=== PATIENT | female | born 1940 | race Caucasian/White ===

== ENCOUNTER 2016-12-06 00:51 | Inpatient (IN) | payer MEDICARE ==
[~2016-12-06] VITALS: Ht 165.1 cm; Wt 67.3 kg
[2016-12-06] VITALS (8 sets, daily range): BP systolic 113–167; BP diastolic 54–90; PULSE 71–87; RESP 16–27; TEMP 97.6–98.6; O2SAT 95–100
[~2016-12-06 00:51] MED LIST: ACET325 PO; ALBU8I INH; BISA10SU8 PR; BROV15NE INH; BUDE.25I NEB; CLON.1 PO; CLON.2 PO; CLOP75TA PO; DOCU1CAP39 PO; EPIN1INJ20; FENT12DI T-DERMAL; FENT50DI TD; FERR324T4 PO; FURO20 PO; GABA100C4 PO; ISOS30 PO; LEVE250 PO; LEXA5TAB PO; LORA.5 PO; LORTA5 PO; MAGN30S PO; MIRA33502 PO; OXYB5TAB PO; PRAV40 PO; PRIL20CA PO; PROC1TAB8 PO; SENN8.6T19 PO; VITA100T15 PO; [UNRECOGNIZED DRUG - CODE] PO
--- NOTE | 2016-12-06 01:40 | PD ---
HPI Chief Complaint: Altered Mental Status Time Seen by Provider: 01:01 Travel History International Travel<30 days: No Contact w/Intl Traveler<30days: No Traveled to known affect area: No History of Present Illness HPI The patient is a 76 year old female who presents to the [facility] emergency department with a history of being found on the floor at her local alf prior to arrival. The patient was noted to have altered mentation. The patient was on the floor for an unspecified period of time. 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 The patient is noted to have an area of ecchymosis around the right eye that no one is sure how this occurred or when it occurred. The patient seems to have right upper extremity pain on her exam. She does have some contracture of the right upper extremity related to her prior stroke. The patient on arrival is also noted to have what appears to be an abrasion to the right temporal area. She denies having any neck pain. She denies having any chest pain or shortness of breath. The patient is noted to be cool to the touch on arrival. The patient is noted to be wet on arrival which is reportedly related to urinary incontinence. Otherwise, it is difficult to obtain a history from this patient. The patient's electronic medical record was reviewed for further history. In addition, the patient is reportedly followed by hospice. The hospice nurse is coming out to assist with care. 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 Arthritis: Yes Anxiety: No Depression: Yes Heart Rhythm Problems: Yes Cancer: No Cardiac Catheterization: Yes (ON LEFT LEG/ CURRENT WOUND TREATMENT) Cardiovascular Problems: No High Cholesterol: Yes COPD: Yes Cerebrovascular Accident: Yes (RT SIDE CVA-expressive dysphasia) Coronary Artery Disease: Yes Diabetes: No Diminished Hearing: No Deep Vein Thrombosis: Yes (right arm and leg- pvd) Endocrine: No Gastrointestinal Disorders: No Genitourinary: No Headaches: No Hepatitis: No Hiatal Hernia: No Hypertension: Yes Immune Disorder: No Musculoskeletal: No Neurologic: Yes (STROKE, APHASIA, RIGHT SIDE PARALYSIS) Psychiatric: No Reproductive: No Respiratory: Yes (COPD) Immunizations Current: Yes Seizures: Yes Thyroid Disease: No Tetanus Vaccination: Unknown Influenza Vaccination: Yes ?: Not Menopausal: Yes Past Surgical History Narrative Surgical The patient's past surgical history is significant for an appendectomy, cholecystectomy, cataract surgery, hysterectomy, right femoral graft placement. Abdominal Surgery: Yes (APPY) AICD: No Appendectomy: Yes Cholecystectomy: Yes Eye Surgery: No Gynecologic Surgery: Yes (HYSTERECTOMY) Hysterectomy: Yes Joint Replacement: Yes (RIGHT KNEE) Oral Surgery: Yes (T & A) Pacemaker: No Other Surgery: Yes (RIGHT FEMORAL ARTERIGORAM WITH GRAFT PLACEMENT. 01/23/12) Social History Alcohol Use: No Tobacco Use: No (QUIT 20 YEARS AGO) Substance Use: No Allergies-Medications (Allergen,Severity, Reaction): Coded Allergies: No Known Allergies (Verified , 12/06/16) Reported Meds & Prescriptions Reported Meds & Active Scripts Active Narrative Medication The patient is on Plavix according to her medication record. Review of Systems ROS Limitations: Poor Historian Except as stated in HPI: all other systems reviewed are Neg General / Constitutional: No: Fever Eyes: No: Visual changes HENT: Positive: Headaches, No: Neck Pain Cardiovascular: No: Chest Pain or Discomfort Respiratory: No: Shortness of Breath Gastrointestinal: No: Abdominal Pain Musculoskeletal: Positive: Myalgias, Arthralgias, Pain (right arm) Skin: No Rash Neurologic: Positive: Focal Abnormalities, Headache, Change in Mentation, Slurred Speech, No: Weakness, Sensory Disturbance Psychiatric: No: Depression Endocrine: No: Polydipsia Hematologic/Lymphatic: No: Easy Bruising Physical Exam Narrative General: The patient is a well-developed well-nourished female, cool to the touch on arrival, confused on exam although with further questioning the patient does attempt to answer questions and does appear to have aphasia. The patient is able to answer yes or no by shaking her head yes and now it seems to be appropriate with answers in this fashion.. Head and Neck exam: Head is normocephalic, evidence of trauma with an area of ecchymosis around the right eye with periorbital edema, no significant tenderness on palpation. This bruising does appear to be older. The patient has an abrasion along the right latter day. The patient has no facial crepitus or step-off. No increased facial bone mobility on palpation. Eyes: EOMI, pupils are equal round and reactive to light. Nose: Midline septum with pink mucous membranes Mouth: Dentition unremarkable. Moist mucus membranes. Posterior oropharynx is not erythematous. No tonsillar hypertrophy. Uvula midline. Airway patent. Neck: No palpable lymphadenopathy. No nuchal rigidity. No thyromegaly. Cardiovascular: Regular rate and rhythm without murmurs, gallops, or rubs. Lungs: Clear to auscultation bilaterally. No wheezes, rhonchi, or rales. Abdomen: Soft, without tenderness to palpation in all 4 quadrants of the abdomen. No guarding, rebound, or rigidity. Normal bowel sounds are audible. No tenderness on palpation of McBurney's point. Extremities: No clubbing, cyanosis, or edema. 2+ pulses in all 4 extremities. The patient has contracture of the right upper extremity related to her prior history of right-sided hemiparesis from a prior stroke. The patient has areas of ecchymosis in various stages of healing on the right arm. The patient has right arm tenderness on palpation with decreased range of motion. There is no crepitus palpated. Back: No spinous process tenderness to palpation. No costovertebral angle tenderness to palpation. Neurologic Exam: The patient is moderately a phasic on examination with shaking her head yes and no to answer questions. The patient is attempting to move all extremities and appears to be at her baseline neurologically on examination of her strength with a right-sided upper and lower extremity hemiparesis. Data Data Last Documented VS Vital Signs Date Time Temp Pulse Resp B/P Pulse Ox O2 Delivery O2 Flow Rate FiO2 12/06/16 03:00 81 17 148/81 97 Room Air 12/06/16 00:[address] Brain W/O Iv Contrast(Rout) (12/06/16 01:16) Ct Cerv Spine W/O Contrast (12/06/16 01:16) Forearm (2vws) (12/06/16 01:16) Humerus (Min 2vws) (12/06/16 01:16) Wrist, Complete (Bnc5pmf) (12/06/16 01:16) Electrocardiogram (12/06/16 01:19) Complete Blood Count With Diff (12/06/16 01:19) Comprehensive Metabolic Panel (12/06/16 01:19) Creatine Kinase (Cpk) (12/06/16 01:19) Ckmb (Isoenzyme) Profile (12/06/16:19) Troponin I (12/06/16:19) B-Type Natriuretic Peptide (12/06/16:19) Prothrombin Time / Inr (Pt) (12/06/16:19) Act Partial Throm Time (Ptt) (12/06/16:19) Lipase (12/06/16:19) Urinalysis - C+S If Indicated (12/06/16:19) Magnesium (Mg) (12/06/16:19) Ammonia (12/06/16:19) Thyroid Stimulating Hormone (12/06/16:19) Chest, Single Ap (12/06/16:19) Pelvis, Ap Only (Routine) (12/06/16:19) Iv Access Insert/Monitor (12/06/16 01:19) Ecg Monitoring (12/06/16:19) Oximetry (12/06/16:19) Urinary Catheter Insert/Apply (12/06/16 01:19) Lactic Acid Sepsis Protocol (12/06/16 01:19) CKMB (12/06/16 01:30) CKMB% (12/06/16 01:30) Admit Order (Ed Use Only) (12/06/16 03:21) Splint Or Brace Apply/Monitor (12/06/16 03:21) Labs Laboratory Tests Test 12/06/16 12/06/16 01:15 01:30 Urine Color LIGHT-YELLOW Urine Turbidity CLEAR Urine pH 8.0 Urine Specific [place] 1.009 Urine Protein 100 mg/dL Urine Glucose (UA) NEG mg/dL Urine Ketones TRACE mg/dL Urine Occult Blood NEG Urine Nitrite NEG Urine Bilirubin NEG Urine Urobilinogen LESS THAN 2.0 MG/DL Urine Leukocyte Esterase NEG Urine RBC 1 /hpf Urine WBC 1 /hpf Urine Bacteria RARE /hpf Urine Mucus FEW /lpf Microscopic Urinalysis Comment CULT NOT INDICATED White Blood Count 10.5 TH/MM3 Red Blood Count 5.25 MIL/MM3 Hemoglobin 15.7 GM/DL Hematocrit 47.2 % Mean Corpuscular Volume 89.9 FL Mean Corpuscular Hemoglobin 29.9 PG Mean Corpuscular Hemoglobin 33.3 % Concent Red Cell Distribution Width 13.5 % Platelet Count 210 TH/MM3 Mean Platelet Volume 8.8 FL Neutrophils (%) (Auto) 80.9 % Lymphocytes (%) (Auto) 12.7 % Monocytes (%) (Auto) 5.7 % Eosinophils (%) (Auto) 0.5 % Basophils (%) (Auto) 0.2 % Neutrophils # (Auto) 8.5 TH/MM3 Lymphocytes # (Auto) 1.3 TH/MM3 Monocytes # (Auto) 0.6 TH/MM3 Eosinophils # (Auto) 0.1 TH/MM3 Basophils # (Auto) 0.0 TH/MM3 CBC Comment DIFF FINAL Differential Comment Prothrombin Time 11.7 SEC Prothromb Time International 1.1 RATIO Ratio Activated Partial 23.6 SEC Thromboplast Time Sodium Level 136 MEQ/L Potassium Level 3.8 MEQ/L Chloride Level 102 MEQ/L Carbon Dioxide Level 22.6 MEQ/L Anion Gap 11 MEQ/L Blood Urea Nitrogen 23 MG/DL Creatinine 1.33 MG/DL Estimat Glomerular Filtration 39 ML/MIN Rate Random Glucose 151 MG/DL Lactic Acid Level 3.1 mmol/L Calcium Level 9.2 MG/DL Magnesium Level 2.2 MG/DL Total Bilirubin 0.7 MG/DL Aspartate Amino Transf 30 U/L (AST/SGOT) Alanine Aminotransferase 25 U/L (ALT/SGPT) Alkaline Phosphatase 65 U/L Ammonia 23 MCMOL/L Total Creatine Kinase 120 U/L Creatine Kinase MB 0.8 NG/ML Troponin I LESS THAN 0.02 NG/ML B-Type Natriuretic Peptide 91 PG/ML Total Protein 8.0 GM/DL Albumin 4.1 GM/DL Lipase 99 U/L Thyroid Stimulating Hormone 6.900 uIU/ML [address] [place] [address] Medical Decision Making Medical Screen Exam Complete: Yes Emergency Medical Condition: Yes Medical Record Reviewed: Yes Interpretation(s) Last Impressions Pelvis X-Ray 12/06/16118 Signed Impressions: Service Date/Time: Tuesday, December 06, 2016 02:23 - CONCLUSION: No definite acute abnormality is seen. There is limited visualization of the right femoral neck. Donald Ortiz MD Chest X-Ray 12/06/16118 Signed Impressions: Service Date/Time: Tuesday, December 06, 2016 02:20 - CONCLUSION: Cardiomegaly. Donald Ortiz MD Wrist X-Ray 12/06/16115 Signed Impressions: Service Date/Time: Tuesday, December 06, 2016 02:10 - CONCLUSION: No acute abnormality seen. The bones are osteopenic. Donald Ortiz MD Radius/Ulna X-Ray 12/06/16115 Signed Impressions: Service Date/Time: Tuesday, December 06, 2016 02:13 - CONCLUSION: The radius and ulna are intact. Donald Ortiz MD Humerus X-Ray 12/06/16115 Signed Impressions: Service Date/Time: Tuesday, December 06, 2016 02:17 - CONCLUSION: Fracturing of the proximal and mid right humeral shaft. Donald Ortiz MD Head CT 12/06/16115 Signed Impressions: Service Date/Time: Tuesday, December 06, 2016 02:32 - CONCLUSION: 1. Areas of subarachnoid hemorrhage at the right frontal lobe, subdural hemorrhage of the right parietal lobe, and parenchymal areas of hemorrhage in the left parietal, left temporal and an intraventricular focal hemorrhage in the lateral and third ventricles. These are all acute. 2. Encephalomalacia involving much of the left middle cerebral artery territory from prior infarction. 3. Right periorbital soft tissue swelling and air-fluid level in the right maxillary sinus. An orbital floor fracture cannot be excluded. Donald Ortiz MD Cervical Spine CT 12/06/16115 Signed Impressions: Service Date/Time: Tuesday, December 06, 2016 02:32 - CONCLUSION: 1. No acute bony abnormalities seen. 2. Degenerative change as described above. 3. Tortuous right common carotid artery seen in the prevertebral soft tissues. Donald Ortiz MD Differential Diagnosis Metabolic encephalopathy, versus hepatic encephalopathy, versus intracranial hemorrhage, versus cervical spine injury, versus sepsis encephalopathy, versus urinary tract infection, versus right upper extremities fracture Narrative Course During the course of the patients emergency department visit, the patients history, examination, and differential diagnosis were reviewed with the patient. The patient had IV access obtained and blood work sent for analysis. The patient was placed on a monitoring analyst with oximetry and blood pressure monitoring. The patient had an EKG done on arrival. The patient's EKG shows a sinus rhythm heart rate of 66, wavy baseline is noted, however the patient is slightly tremulous on arrival. No acute ST segment elevation is noted. A chest x-ray, pelvic x-ray was ordered, right wrist, right forearm, right wrist x -ray was ordered. CT scan of the head and neck was ordered. A Menjivar catheter is placed to gravity. The patient's hospice nurse called to check on the patient and is on his way in to assist with the patient's care. The patients laboratory studies were reviewed and remarkable for the patient's CBC is remarkable for a white count of 10.5, hemoglobin 15.7, platelets 210 with 80.9 neutrophils. CMP is remarkable for BUN of 23, creatinine 1.33, glucose 151, CPK and troponin I are within normal limits, TSH is 6.9, lipase 99 , PT 11.7, INR 1.1, PTT 23.6. Urinalysis shows 100 protein, trace ketones rare bacteria. Radiology studies were reviewed and remarkable for a CT scan of the brain that shows areas of subarachnoid hemorrhage at the right frontal lobe, subdural hemorrhage of the right parietal lobe parenchymal areas of hemorrhage in the left parietal, left temporal and intraventricular focal hemorrhage in the lateral and third ventricles. These appear all to be acute. There is encephalomalacia involving much of the left middle cerebral artery territory from prior infarction, right. Orbital soft tissue swelling and air fluid levels in the right maxillary sinus and orbital floor fracture cannot be excluded. CT scan of the C-spine shows no acute abnormality. Chest x-ray shows cardiomegaly, no other acute abnormality. Pelvic x-ray shows no acute abnormality. Right wrist and radial ulna x-ray shows no acute abnormality. Right humerus x-ray reveals fracturing at the proximal and mid right humeral shaft. The CT scan of the brain was called to me emergently by the reading radiologist. By that time the hospice nurse for the patient had arrived at the patient's bedside. He confirmed that the patient is DNR related to multiple comorbid medical issues. He does have access to the patient's power of patent attorney and close family member who is not in this state. He did contact them to discuss the patient's current medical findings. He requested that a neurosurgical consultation be obtained regarding recommendations for this patient's care and they also requested that a medical doctor evaluate the patient for her ability to withstand surgery if this is recommended by the neurosurgeon. They report that they have been told in the past that the patient is not a surgical candidate as she would not tolerate any surgery related to her other comorbid medical issues, however they would like this confirmed. We explained that the patient during this evaluation may continue to decompensate and going to cardiac arrest or respiratory distress requiring intubation. They do not want the patient's DNR revoked. They are aware that the patient may from these injuries prior to her medical clearance if that is able to be obtained. They reported to the hospice nurse that they believe that the patient would not have a good recovery and would probably not survive surgery, however for peace of mind they would like this confirmed. The patient was admitted to the hospital in critical condition and [facility] a consultation to Dr. Brown, neurosurgery. Critical Care Narrative Aggregate critical care time was 47 minutes. Time to perform other separately billable procedures was not included in the critical care time. My time did not include minutes spent treating any other patients simultaneously or on activities that did not directly contribute to the patient's treatment. The services I provided to this patient were to treat and/or prevent clinically significant deterioration that could result in: Respiratory failure, versus brain herniation, versus cardiovascular collapse I provided critical care services requiring my management, as noted below: Chart data review, documentation time, medication orders and management, vital sign assessments/reviewing monitor data, ordering and reviewing lab tests, ordering and interpreting/reviewing x-rays and diagnostic studies, care of the patient and discussion of the patient with the admitting physicians. Physician Communication Physician Communication I spoke to Dr. Brown regarding this patient's case after I saw the CT scan findings. He plans to see the patient and consultation. He did request that the patient be admitted to the intensive care unit. I discussed this patient's case with the patient's hospice nurse. I discussed this patient's case with the hospitalist, Dr. Ovalle who did agree to admit the patient for further evaluation and treatment at this time. Diagnosis Primary Impression: Fall Qualified Code: W19.XXXA - Fall, initial encounter Additional Impressions: Intracranial hemorrhage Platelet inhibition due to Plavix Closed right humeral fracture Qualified Code: S42.301A - Closed fracture of shaft of right humerus, unspecified fracture morphology, initial encounter Hospice care patient Admitting Information Admitting Physician Requests: Admit Mesha Varghese MD Dec 06, 2016 01:40
[2016-12-06 01:49] LABS: BACTERIA, URINE RARE /hpf; BLOOD, URINE NEG (NEG); COMMENT (UR) CULT NOT INDICATED; CULTURE IF INDICATED CULT NOT INDICATED; GLUCOSE,URINE NEG (NEG); KETONE, URINE TRACE mg/dL (NEG); MUCUS URINE FEW /lpf (OCC); NITRITE,URINE NEG (NEG); URINE COLOR LIGHT-YELLOW (YELLW/STRAW)
[2016-12-06 01:52] LABS: APTT (PATIENT) 23.6 SEC (24.3-30.1); INTERNATIONAL NORMALIZED RATIO 1.1 RATIO; PROTHROMBIN TIME - PATIENT 11.7 SEC (9.8-11.6)
[2016-12-06 01:56] LABS: AUTOMATED NEUTROPHIL # 8.5 TH/MM3 (1.8-7.7); BASOPHIL % 0.2 % (0.0-2.0); EOSINOPHIL # 0.1 TH/MM3 (0-0.4); EOSINOPHIL % 0.5 % (0.0-4.0); HEMATOCRIT 47.2 % (35.0-46.0); HEMO FLAGS DIFF FINAL; LYMPH % 12.7 % (9.0-44.0); LYMPHOCYTE # 1.3 TH/MM3 (1.0-4.8); MEAN CELL VOLUME 89.9 FL (80.0-100.0); MEAN CORPUSCULAR HEMOGLOBIN 29.9 PG (27.0-34.0); MEAN CORPUSCULAR HGB CONC 33.3 % (32.0-36.0); MONO % 5.7 % (0.0-8.0); NEUT % 80.9 % (16.0-70.0); PLATELET COUNT 210 TH/MM3 (150-450); RED BLOOD COUNT 5.25 MIL/MM3 (4.00-5.30); RED CELL DISTRIBUTION WIDTH 13.5 % (11.6-17.2); WHITE BLOOD COUNT 10.5 TH/MM3 (4.0-11.0)
[2016-12-06 02:06] LABS: ANION GAP 11 MEQ/L (5-15); AST (GOT) 30 U/L (15-37); BICARBONATE 22.6 MEQ/L (21.0-32.0); BLOOD UREA NITROGEN 23 MG/DL (7-18); CHLORIDE 102 MEQ/L (98-107); GLOMERULAR FILTRATION RATE 39 ML/MIN (>89); MAGNESIUM 2.2 MG/DL (1.5-2.5); POTASSIUM 3.8 MEQ/L (3.5-5.1); SODIUM (NA) 136 MEQ/L (136-145)
[2016-12-06 02:15] LABS: ALKALINE PHOSPHATASE 65 U/L (45-117); ALT (GPT) 25 U/L (10-53); CREATINE KINASE 120 U/L (26-192); TOTAL BILIRUBIN ADULT 0.7 MG/DL (0.2-1.0)
--- NOTE | 2016-12-06 02:28 | RADRPT ---
EXAM DATE/TIME: 12/06/2016 02:23 [facility] COMPARISON: No previous studies available for comparison. INDICATIONS : Pelvic pain post fall. MEDICAL HISTORY : None. SURGICAL HISTORY : None. ENCOUNTER: Initial ACUITY: 1 day PAIN SCORE: 2/10 LOCATION: Bilateral pelvis FINDINGS: A single frontal view of the pelvis demonstrates no evidence of fracture. The bony pelvic ring is in tact. The left hip is well demonstrated. The right hip is rotated making full valuation difficult. B carlos mineralization is normal. The soft tissues are intact. Vascular calcifications and stents are pr esent. Clips are seen in the left inguinal region. CONCLUSION: No definite acute abnormality is seen. There is limited visualization of the right femoral neck. Donald Ortiz MD on December 06, 2016 at 2:25 Board Certified Radiologist. This report was verified electronically.
--- NOTE | 2016-12-06 02:29 | RADRPT ---
EXAM DATE/TIME: 12/06/2016 02:20 [facility] COMPARISON: CHEST SINGLE AP, September 16, 2015, 22:26. INDICATIONS : Shortness of breath. MEDICAL HISTORY : None. SURGICAL HISTORY : None. ENCOUNTER: Initial ACUITY: 1 day PAIN SCORE: 0/10 LOCATION: Bilateral chest FINDINGS: A single view of the chest demonstrates the lungs to be symmetrically aerated without evidence of mas s, infiltrate or effusion. The heart size is enlarged.. There is a fracture of the right humerus.. CONCLUSION: Cardiomegaly. Donald Ortiz MD on December 06, 2016 at 2:27 Board Certified Radiologist. This report was verified electronically.
--- NOTE | 2016-12-06 02:31 | RADRPT ---
EXAM DATE/TIME: 12/06/2016 02:13 [facility] COMPARISON: No previous studies available for comparison. INDICATIONS : Right forearm pain post fall. MEDICAL HISTORY : None. SURGICAL HISTORY : None. ENCOUNTER: Initial ACUITY: 1 day PAIN SCORE: 6/10 LOCATION: Right upper extremity FINDINGS: Two view examination of the right forearm demonstrates no evidence of fracture or dislocation. Bony mineralization is decreased. The soft tissue structures are intact. There is fracturing of the mid humerus. CONCLUSION: The radius and ulna are intact. Donald Ortiz MD on December 06, 2016 at 2:29 Board Certified Radiologist. This report was verified electronically.
[2016-12-06 02:33] LABS: CKMB 0.8 NG/ML (0.5-3.6)
--- NOTE | 2016-12-06 02:34 | RADRPT ---
EXAM DATE/TIME: 12/06/2016 02:17 [facility] COMPARISON: No previous studies available for comparison. INDICATIONS : Right humerus pain post fall. MEDICAL HISTORY : None. SURGICAL HISTORY : None. ENCOUNTER: Initial ACUITY: 1 day PAIN SCORE: 10/10 LOCATION: Right upper extremity FINDINGS: There is a spiral fracture through the proximal and mid humeral shaft with medial dislocation of the main distal fragment. The glenohumeral and elbow joints are aligned. CONCLUSION: Fracturing of the proximal and mid right humeral shaft. Donald Ortiz MD on December 06, 2016 at 2:32 Board Certified Radiologist. This report was verified electronically.
--- NOTE | 2016-12-06 02:35 | RADRPT ---
EXAM DATE/TIME: 12/06/2016 02:10 [facility] COMPARISON: No previous studies available for comparison. INDICATIONS : Right wrist pain post fall. MEDICAL HISTORY : None. SURGICAL HISTORY : None. ENCOUNTER: Initial ACUITY: 1 day PAIN SCORE: 6/10 LOCATION: Right upper extremity FINDINGS: Three view examination of the right wrist demonstrates no soft tissue swelling, dislocation, or fract ure. The carpal bones are in normal alignment. The joint spaces are maintained. Bony mineralizatio n is decreased. CONCLUSION: No acute abnormality seen. The bones are osteopenic. Donald Ortiz MD on December 06, 2016 at 2:33 Board Certified Radiologist. This report was verified electronically.
--- NOTE | 2016-12-06 02:51 | RADRPT ---
EXAM DATE/TIME: 12/06/2016 02:32 [facility] COMPARISON: No previous studies available for comparison. INDICATIONS : Found on floor. Altered mental status. RADIATION DOSE: 32.81 CTDIvol (mGy) MEDICAL HISTORY : Cerebrovascular disease. Hypertension. Seizures.COPD SURGICAL HISTORY : Appendectomy. Cholecystectomy.Hysterectomy. ENCOUNTER: Initial ACUITY: 1 day PAIN SCALE: 0/10 LOCATION: cranial TECHNIQUE: Multiple contiguous axial images were obtained of the head. Using automated exposure control and adj ustment of the mA and/or kV according to patient size, radiation dose was kept as low as reasonably a chievable to obtain optimal diagnostic quality images. FINDINGS: CEREBRUM: There is encephalomalacia involving much of the left middle cerebral artery territory including porti ons of the left frontal, parietal, and temporal lobes. There are acute areas of focal parenchymal hem orrhage seen in the left anterior parietal lobe measuring 1.1 cm and at the posterior left temporal l obe measuring 1.6 cm. There is subarachnoid hemorrhage seen at the right frontal lobe. There is a sub dural hemorrhage seen at the right parietal lobe measuring up to 6 mm in thickness. There is acute he morrhage seen in the lateral ventricles and in the upper third ventricle. Midline shift is not seen. The ventricles are dilated. The basal cisterns are open. No evidence of midline shift, mass lesion, o r acute infarction. POSTERIOR FOSSA: The cerebellum and brainstem are intact. The 4th ventricle is midline. The cerebellopontine angle i s unremarkable. EXTRACRANIAL: The visualized portion of the orbits is intact. There is right periorbital soft tissue swelling. Ther e is fluid in the right maxillary sinus. An orbital floor injury on the right cannot be excluded. SKULL: The calvaria is intact. No evidence of skull fracture. CONCLUSION: 1. Areas of subarachnoid hemorrhage at the right frontal lobe, subdural hemorrhage of the right parie latrice lobe, and parenchymal areas of hemorrhage in the left parietal, left temporal and an intraventric ular focal hemorrhage in the lateral and third ventricles. These are all acute. 2. Encephalomalacia involving much of the left middle cerebral artery territory from prior infarction . 3. Right periorbital soft tissue swelling and air-fluid level in the right maxillary sinus. An orbita l floor fracture cannot be excluded. Donald Ortiz MD on December 06, 2016 at 2:36 Board Certified Radiologist. This report was verified electronically.
--- NOTE | 2016-12-06 03:10 | RADRPT ---
EXAM DATE/TIME: 12/06/2016 02:32 [place] COMPARISON: No previous studies available for comparison. INDICATIONS : Found on floor. Altered mental status. RADIATION DOSE: 20.82 CTDIvol (mGy) MEDICAL HISTORY : Cerebrovascular disease. Hypertension. Seizures.COPD SURGICAL HISTORY : Appendectomy. Cholecystectomy.Hysterectomy. ENCOUNTER: Initial ACUITY: 1 day PAIN SCALE: 0/10 LOCATION: neck TECHNIQUE: Volumetric scanning of the cervical spine was performed. Multiplanar reconstructions in the sagittal, coronal and oblique axial planes were performed. Using automated exposure control and adjustment o f the mA and/or kV according to patient size, radiation dose was kept as low as reasonably achievable to obtain optimal diagnostic quality images. FINDINGS: VERTEBRAE: Normal vertebral body height. There is a calcified right common carotid artery seen and the preverteb ral soft tissues. This is secondary to tortuous atherosclerotic change. ALIGNMENT: There is mild anterior subluxation of C3 on C4 and posterior subluxation of C5 on C6 and minimal ante rior subluxation of C7 on T1. C2-C3: The bony spinal canal is normal in size. No evidence of disc bulge or herniation. The neural forami na are bilaterally patent. There is facet hypertrophy being worse on the right. C3-C4: The bony spinal canal is normal in size. No evidence of disc bulge or herniation. The neural forami na are bilaterally patent. There is facet hypertrophy being worse on the left. C4-C5: The bony spinal canal is normal in size. No evidence of disc bulge or herniation. The neural forami na are bilaterally patent. There is facet hypertrophy. C5-C6: The disc demonstrates decreased height. There is disc bulge and prominent posterior osteophytic ridgi ng causing a moderate impression on the thecal sac especially on the right side. There is uncovertebr al and facet hypertrophy being worse on the right. There is right neural foraminal narrowing. The lef t neural foramina is patent. C6-C7: The disc space is narrowed. There is mild diffuse disc bulge. There is a possible more focal left lat eral recess protrusion. There is uncovertebral and mild facet hypertrophy. There is left neural latricia inal narrowing. The right neural foramina is patent. C7-T1: The bony spinal canal is normal in size. No evidence of disc bulge or herniation. The neural forami na are bilaterally patent. There is right facet hypertrophy. CONCLUSION: 1. No acute bony abnormalities seen. 2. Degenerative change as described above. 3. Tortuous right common carotid artery seen in the prevertebral soft tissues. Donald Ortiz MD on December 06, 2016 at 3:03 Board Certified Radiologist. This report was verified electronically.
[2016-12-06 03:37] LABS: LACTIC ACID GHOST NOT REPORTABLE
[2016-12-06] MEDS ORDERED: NALOXONE HCL 0.4 MG/ML AMP IV PRN (03:45)
[2016-12-06] MEDS ORDERED: ENALAPRILAT 2.5 MG/2 ML VIAL IV PUSH PRN (03:45)
[2016-12-06] MEDS ORDERED: SODIUM CHLORIDE 0.9% FLUSH 5 ML FLUSH FLUSH PRN (03:45)
[2016-12-06] MEDS ORDERED: ONDANSETRON HCL 4 MG/2 ML VIAL IVP PRN (03:45)
[2016-12-06 05:33] LABS: AUTOMATED NEUTROPHIL # 9.3 TH/MM3 (1.8-7.7); BASOPHIL # 0.1 TH/MM3 (0-0.2); BASOPHIL % 0.7 % (0.0-2.0); EOSINOPHIL % 0.1 % (0.0-4.0); HEMO FLAGS DIFF FINAL; LYMPH % 5.5 % (9.0-44.0); LYMPHOCYTE # 0.6 TH/MM3 (1.0-4.8); MEAN CELL VOLUME 88.8 FL (80.0-100.0); MEAN CORPUSCULAR HEMOGLOBIN 30.2 PG (27.0-34.0); MONO % 7.2 % (0.0-8.0); NEUT % 86.5 % (16.0-70.0); PLATELET COUNT 206 TH/MM3 (150-450); RED BLOOD COUNT 4.85 MIL/MM3 (4.00-5.30); RED CELL DISTRIBUTION WIDTH 13.6 % (11.6-17.2); WHITE BLOOD COUNT 10.7 TH/MM3 (4.0-11.0)
[2016-12-06 06:01] LABS: BICARBONATE 27.8 MEQ/L (21.0-32.0); POTASSIUM 3.7 MEQ/L (3.5-5.1)
[2016-12-06] MEDS: SODIUM CHLORIDE 0.9% FLUSH 5 ML FLUSH FLUSH SCH ×2 (08:20→21:00)
--- NOTE | 2016-12-06 08:53 | PD.CONS ---
(Alden Brown MD) HPI Consult Requested By Primary Care Physician Patricia Causey MD (Alden Brown MD) Service NRS Consult Requested By ED Physician Reason for Consult ICH, s/p fall History of Present Illness Ms. Hutchinson is a 76-year-old female with history of large right hemispheric stroke and baseline aphasia. She was reported to be in Hospice care and fell. She was brought to [facility] ED. Work up showed a right humerus fracture and intracranial hemorrhage. She is awake, only says her name, she does not follow commands. A neurosurgical evaluation was requested. (Kristi Wright) Review of Systems ROS Limitations: Clinical Condition, Speech Impaired (Kristi Wright) Past Family Social History Allergies: Coded Allergies: No Known Allergies (Verified , 12/06/16) Past Medical History Previous large right side CVA with chronic aphasia Hypertension COPD CAD Hx of DVT Seizures Past Surgical History Cataract Hysterectomy Cholecystectomy Appendectomy Reported Medications Plavix 75 mg daily Active Ordered Medications Current Medications Medications (Trade) Dose Ordered Sig/Sandra Route PRN Reason Start Time Stop Time Status Last Admin Dose Admin IV Flush (NS Flush) 2 ml UNSCH PRN FLUSH FLUSH AFTER USING IV ACCESS 12/06/16 03:45 IV Flush (NS Flush) 2 ml BID FLUSH 12/06/16 09:00 12/06/16 08:20 Ondansetron HCl (Zofran Inj) 4 mg Q6H PRN IVP NAUSEA OR VOMITING 12/06/16 03:45 Naloxone HCl (Narcan Inj) 0.4 mg UNSCH PRN IV SEE LABEL COMMENTS 12/06/16 03:45 Enalaprilat (Vasotec Inj) 1.25 mg Q6H PRN IV PUSH SBP>160, DBP>90 12/06/16 12:00 Pantoprazole Sodium (Protonix) 40 mg DAILY PO 12/07/16 09:00 Family History noncontributory Social History from nursing report, resides in retirement in hospice care no reports of current tobacco, etoh use, or illicit drug use (Kristi Wright ) Physical Exam Vital Signs Vital Signs Date Time Temp Pulse Resp B/P Pulse Ox O2 Delivery O2 Flow Rate FiO2 12/06/16 06:30 98.1 87 20 116/54 95 12/06/16 03:00 81 17 148/81 97 Room Air 12/06/16 01:00 72 16 139/66 98 Room Air 12/06/16 00:51 75 25 96 Room Air 12/06/16 00:51 98.4 71 25 167/81 96 12/06/16 00:51 25 97 Room Air Laboratory Laboratory Tests Test 12/06/16 12/06/16 12/06/16 12/06/16 01:15 01:30 05:02 05:22 Urine Color LIGHT-YELLOW Urine Turbidity CLEAR Urine pH 8.0 Urine Specific [place] 1.009 Urine Protein 100 Urine Glucose (UA) NEG Urine Ketones TRACE Urine Occult Blood NEG Urine Nitrite NEG Urine Bilirubin NEG Urine Urobilinogen LESS THAN 2.0 Urine Leukocyte Esterase NEG Urine RBC 1 Urine WBC 1 Urine Bacteria RARE Urine Mucus FEW Microscopic Urinalysis Comment CULT NOT INDICATED White Blood Count 10.5 10.7 Red Blood Count 5.25 4.85 Hemoglobin 15.7 14.6 Hematocrit 47.2 43.0 Mean Corpuscular Volume 89.9 88.8 Mean Corpuscular Hemoglobin 29.9 30.2 Mean Corpuscular Hemoglobin 33.3 34.0 Concent Red Cell Distribution Width 13.5 13.6 Platelet Count 210 206 Mean Platelet Volume 8.8 8.4 Neutrophils (%) (Auto) 80.9 86.5 Lymphocytes (%) (Auto) 12.7 5.5 Monocytes (%) (Auto) 5.7 7.2 Eosinophils (%) (Auto) 0.5 0.1 Basophils (%) (Auto) 0.2 0.7 Neutrophils # (Auto) 8.5 9.3 Lymphocytes # (Auto) 1.3 0.6 Monocytes # (Auto) 0.6 0.8 Eosinophils # (Auto) 0.1 0.0 Basophils # (Auto) 0.0 0.1 CBC Comment DIFF FINAL DIFF FINAL Differential Comment Prothrombin Time 11.7 Prothromb Time International 1.1 Ratio Activated Partial 23.6 Thromboplast Time Sodium Level 136 140 Potassium Level 3.8 3.7 Chloride Level 102 102 Carbon Dioxide Level 22.6 27.8 Anion Gap 11 10 Blood Urea Nitrogen 23 21 Creatinine 1.33 1.27 Estimat Glomerular Filtration 39 41 Rate Random Glucose 151 125 Lactic Acid Level 3.1 1.9 Calcium Level 9.2 8.9 Magnesium Level 2.2 Total Bilirubin 0.7 Aspartate Amino Transf 30 (AST/SGOT) Alanine Aminotransferase 25 (ALT/SGPT) Alkaline Phosphatase 65 Ammonia 23 Total Creatine Kinase 120 Creatine Kinase MB 0.8 Troponin I LESS THAN 0.02 B-Type Natriuretic Peptide 91 Total Protein 8.0 Albumin 4.1 Lipase 99 Thyroid Stimulating Hormone 6.900 3rd Gen (Alden Brown MD) Physical Exam Ms. Hutchinson is awake, only said her first name, otherwise nonverbal. Not following commands. Cranial nerve examination: pupils to be equal, round, and reactive to light. Facial appears symmetrical. Face sensation, hearing, visual waller, and olfaction can not be assessed properly due to the patients condition. Neck is soft and supple. Muscle strength: Right arm in ortho splint and sling. grossly moved left arm and both legs. Cannot assess detail exam due to clinical condition. Deep tendon reflexes are 1+ in the left upper extremities. In the lower extremities, the patellar and Achilles are 1+, bilaterally. There is left Babinski response. Cerebellar examination is limited due to the patient condition, but no obvious deficits are noted. (Kristi Wright) Result Diagram: 12/06/1652112/06/16521 Imaging Last Impressions Pelvis X-Ray 12/06/16118 Signed Impressions: Service Date/Time: Tuesday, December 06, 2016 02:23 - CONCLUSION: No definite acute abnormality is seen. There is limited visualization of the right femoral neck. Donald Ortiz MD Chest X-Ray 12/06/16118 Signed Impressions: Service Date/Time: Tuesday, December 06, 2016 02:20 - CONCLUSION: Cardiomegaly. Donald Ortiz MD Wrist X-Ray 12/06/16115 Signed Impressions: Service Date/Time: Tuesday, December 06, 2016 02:10 - CONCLUSION: No acute abnormality seen. The bones are osteopenic. Donald Ortiz MD Radius/Ulna X-Ray 12/06/16115 Signed Impressions: Service Date/Time: Tuesday, December 06, 2016 02:13 - CONCLUSION: The radius and ulna are intact. Donald Ortiz MD Humerus X-Ray 12/06/16115 Signed Impressions: Service Date/Time: Tuesday, December 06, 2016 02:17 - CONCLUSION: Fracturing of the proximal and mid right humeral shaft. Donald Ortiz MD Head CT 12/06/16115 Signed Impressions: Service Date/Time: Tuesday, December 06, 2016 02:32 - CONCLUSION: 1. Areas of subarachnoid hemorrhage at the right frontal lobe, subdural hemorrhage of the right parietal lobe, and parenchymal areas of hemorrhage in the left parietal, left temporal and an intraventricular focal hemorrhage in the lateral and third ventricles. These are all acute. 2. Encephalomalacia involving much of the left middle cerebral artery territory from prior infarction. 3. Right periorbital soft tissue swelling and air-fluid level in the right maxillary sinus. An orbital floor fracture cannot be excluded. Donald Ortiz MD Cervical Spine CT 12/06/16115 Signed Impressions: Service Date/Time: Tuesday, December 06, 2016 02:32 - CONCLUSION: 1. No acute bony abnormalities seen. 2. Degenerative change as described above. 3. Tortuous right common carotid artery seen in the prevertebral soft tissues. Donald Ortiz MD (Kristi Wright) Alden Brown MD Dec 06, 2016 08:53 Kristi Wright Dec 06, 2016 12:49
[2016-12-06] MEDS ORDERED: ENOXAPARIN SODIUM 40 MG/0.4 ML SYRINGE SQ SCH (09:00)
--- NOTE | 2016-12-06 11:14 | HHI.HP ---
[facility] Patricia Causey MD Admission Diagnosis ICH, Right humerus fx s/p fall Diagnoses: (1) ICH (intracerebral hemorrhage) (2) Closed right humeral fracture (3) History of CVA (cerebrovascular accident) Chief Complaint: Altered mental status change Travel History International Travel<30 Days: No Contact w/Intl Traveler <30 Da: No Traveled to Known Affected Are: No History of Present Illness 76-year-old female with a history of aphasia and right-sided hemiparesis from a prior stroke, a resident of a local correction facility was brought in yesterday to the ED for evaluation of ecchymosis to the right high after patient was found on the ground as she has fallen down. Patient is a very poor historian and able to provide any further history however during my exam she was alert and nodding. Head CT revealed multiple area of intracranial bleed for which neurosurgery has been consulted. Right humerus x-ray revealed Fracturing of the proximal and mid right humeral shaft. Review of Systems ROS Limitations: Poor Historian Other 12 systems reviewed and are negative except for the ones mentioned in the history of present illness Past Family Social History Past Medical History hypertension, depression, COPD, history of cerebrovascular accident with right sided hemiparesis and aphasia, seizure disorder, history of DVT, history of coronary artery disease. 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 - 12/06/16 Family History Due to patient is an current history of aphasia with stroke patient family history not relevant for this case Social History Alcohol Use: No Tobacco Use: No (QUIT 20 YEARS AGO) Substance Use: No Physical Exam Vital Signs Vital Signs Date Time Temp Pulse Resp B/P Pulse Ox O2 Delivery O2 Flow Rate FiO2 12/06/16 07:43 97.6 82 20 113/57 100 12/06/16 07:00 Room Air 12/06/16 06:30 98.1 87 20 116/54 95 12/06/16 03:00 81 17 148/81 97 Room Air 12/06/16 01:00 72 16 139/66 98 Room Air 12/06/16 00:51 75 25 96 Room Air 12/06/16 00:51 98.4 71 25 167/81 96 12/06/16 00:51 25 97 Room Air Physical Exam GENERAL: This is a well-nourished, well-developed patient, in no apparent distress. SKIN: No rashes, ecchymoses or lesions. Cool and dry. HEAD: Atraumatic. Normocephalic. No temporal or scalp tenderness. EYES: Pupils equal round and reactive. Extraocular motions intact. No scleral icterus. No injection or drainage. ENT: Nose without bleeding, purulent drainage or septal hematoma. Throat without erythema, tonsillar hypertrophy or exudate. Uvula midline. Airway patent. NECK: Trachea midline. No JVD or lymphadenopathy. Supple, nontender, no meningeal signs. CARDIOVASCULAR: Regular rate and rhythm without murmurs, gallops, or rubs. RESPIRATORY: Clear to auscultation. Breath sounds equal bilaterally. No wheezes , rales, or rhonchi. GASTROINTESTINAL: Abdomen soft, non-tender, nondistended. No hepato-splenomegaly , or palpable masses. No guarding. MUSCULOSKELETAL: Extremities without clubbing, cyanosis, or edema. No joint tenderness, effusion, or edema noted. No calf tenderness. Negative Homans sign bilaterally. NEUROLOGICAL: Awake and alert. Cranial nerves II through XII intact. Motor and sensory grossly within normal limits. Five out of 5 muscle strength in all muscle groups. Normal speech. Laboratory Laboratory Tests Test 12/06/16 12/06/16 12/06/16 12/06/16 01:15 01:30 05:02 05:22 Urine Color LIGHT-YELLOW Urine Turbidity CLEAR Urine pH 8.0 Urine Specific [place] 1.009 Urine Protein 100 Urine Glucose (UA) NEG Urine Ketones TRACE Urine Occult Blood NEG Urine Nitrite NEG Urine Bilirubin NEG Urine Urobilinogen LESS THAN 2.0 Urine Leukocyte Esterase NEG Urine RBC 1 Urine WBC 1 Urine Bacteria RARE Urine Mucus FEW Microscopic Urinalysis Comment CULT NOT INDICATED White Blood Count 10.5 10.7 Red Blood Count 5.25 4.85 Hemoglobin 15.7 14.6 Hematocrit 47.2 43.0 Mean Corpuscular Volume 89.9 88.8 Mean Corpuscular Hemoglobin 29.9 30.2 Mean Corpuscular Hemoglobin 33.3 34.0 Concent Red Cell Distribution Width 13.5 13.6 Platelet Count 210 206 Mean Platelet Volume 8.8 8.4 Neutrophils (%) (Auto) 80.9 86.5 Lymphocytes (%) (Auto) 12.7 5.5 Monocytes (%) (Auto) 5.7 7.2 Eosinophils (%) (Auto) 0.5 0.1 Basophils (%) (Auto) 0.2 0.7 Neutrophils # (Auto) 8.5 9.3 Lymphocytes # (Auto) 1.3 0.6 Monocytes # (Auto) 0.6 0.8 Eosinophils # (Auto) 0.1 0.0 Basophils # (Auto) 0.0 0.1 CBC Comment DIFF FINAL DIFF FINAL Differential Comment Prothrombin Time 11.7 Prothromb Time International 1.1 Ratio Activated Partial 23.6 Thromboplast Time Sodium Level 136 140 Potassium Level 3.8 3.7 Chloride Level 102 102 Carbon Dioxide Level 22.6 27.8 Anion Gap 11 10 Blood Urea Nitrogen 23 21 Creatinine 1.33 1.27 Estimat Glomerular Filtration 39 41 Rate Random Glucose 151 125 Lactic Acid Level 3.1 1.9 Calcium Level 9.2 8.9 Magnesium Level 2.2 Total Bilirubin 0.7 Aspartate Amino Transf 30 (AST/SGOT) Alanine Aminotransferase 25 (ALT/SGPT) Alkaline Phosphatase 65 Ammonia 23 Total Creatine Kinase 120 Creatine Kinase MB 0.8 Troponin I LESS THAN 0.02 B-Type Natriuretic Peptide 91 Total Protein 8.0 Albumin 4.1 Lipase 99 Thyroid Stimulating Hormone 6.900 3rd Gen Result Diagram: 12/06/1652112/06/16521 Imaging Last Impressions Pelvis X-Ray 12/06/16118 Signed Impressions: Service Date/Time: Tuesday, December 06, 2016 02:23 - CONCLUSION: No definite acute abnormality is seen. There is limited visualization of the right femoral neck. Donald Ortiz MD Chest X-Ray 12/06/16118 Signed Impressions: Service Date/Time: Tuesday, December 06, 2016 02:20 - CONCLUSION: Cardiomegaly. Donald Ortiz MD Wrist X-Ray 12/06/16115 Signed Impressions: Service Date/Time: Tuesday, December 06, 2016 02:10 - CONCLUSION: No acute abnormality seen. The bones are osteopenic. Donald Ortiz MD Radius/Ulna X-Ray 12/06/16115 Signed Impressions: Service Date/Time: Tuesday, December 06, 2016 02:13 - CONCLUSION: The radius and ulna are intact. Donald Ortiz MD Humerus X-Ray 12/06/16115 Signed Impressions: Service Date/Time: Tuesday, December 06, 2016 02:17 - CONCLUSION: Fracturing of the proximal and mid right humeral shaft. Donald Ortiz MD Head CT 12/06/16115 Signed Impressions: Service Date/Time: Tuesday, December 06, 2016 02:32 - CONCLUSION: 1. Areas of subarachnoid hemorrhage at the right frontal lobe, subdural hemorrhage of the right parietal lobe, and parenchymal areas of hemorrhage in the left parietal, left temporal and an intraventricular focal hemorrhage in the lateral and third ventricles. These are all acute. 2. Encephalomalacia involving much of the left middle cerebral artery territory from prior infarction. 3. Right periorbital soft tissue swelling and air-fluid level in the right maxillary sinus. An orbital floor fracture cannot be excluded. Donald Ortiz MD Cervical Spine CT 12/06/16115 Signed Impressions: Service Date/Time: Tuesday, December 06, 2016 02:32 - CONCLUSION: 1. No acute bony abnormalities seen. 2. Degenerative change as described above. 3. Tortuous right common carotid artery seen in the prevertebral soft tissues. Donald Ortiz MD Assessment and Plan Problem List: (1) ICH (intracerebral hemorrhage) ICD Code: I61.9 Status: Acute (2) Closed right humeral fracture ICD Code: S42.301A Status: Acute Assessment and Plan 76-year-old female with Intracerebral hemorrhage: Head CT noted and review with finding of Areas of subarachnoid hemorrhage at the right frontal lobe, subdural hemorrhage of the right parietal lobe, and parenchymal areas of hemorrhage in the left parietal, left temporal and an intraventricular focal hemorrhage in the lateral and third ventricles. Neurosurgery has been consulted however recommend conservative treatment. Will repeat head CT in 24 hours. PT/OT/speech therapy consultation pending Fracture of the proximal and mid right humeral shaft: Status post mechanical fall, Humerus x-ray noted and reviewed by me. Consult orthopedic surgery Prior history of CVA with aphasia, CAD: Chronic; resume Plavix when okay with neurosurgery DVT prophylaxis: Bilateral SCDs Code Status DO NOT RESUSCITATE Physician Certification 2 Midnight Certification Type: Admission for Inpatient Services Order for Inpatient Services The services are ordered in accordance with Medicare regulations or non- Medicare payer requirements, as applicable. In the case of services not specified as inpatient-only, they are appropriately provided as inpatient services in accordance with the 2-midnight benchmark. Estimated LOS (days): 2 days is the estimated time the patient will need to remain in the hospital, assuming treatment plan goals are met and no additional complications. Post-Hospital Plan: Not yet determined Problem Qualifiers (1) Closed right humeral fracture: Qualified Code: S42.301A - Closed fracture of shaft of right humerus, unspecified fracture morphology, initial encounter Reggie Rodriguez MD Dec 06, 2016 11:14
[2016-12-06] MEDS ORDERED: RESP: ALBUTEROL 2.5 MG/IPRATROPIUM 0.5 MG NEB (PRN) NEB (12:00)
--- NOTE | 2016-12-06 22:03 | EKG ---
Date Performed: 12/06/2016 Time Performed: 01:08:24 PTAGE: 76 years EKG: Sinus rhythm NONSPECIFIC ST & T-WAVE ABNORMALITY ABNORMAL RHYTHM ECG PREVIOUS TRACING : 01/30/2015 14.22 Compared to the previous tracing, ST-T changes significant ly improved DOCTOR: Jason Samaniego Interpretating Date/Time 12/06/2016 22:02:40
[2016-12-07] VITALS: BP 137/87; PULSE 82; RESP 18; TEMP 97.6; O2SAT 96
[2016-12-07 04:20] VITALS: BP 138/80; PULSE 88; RESP 20; TEMP 98; O2SAT 95
[2016-12-07] MEDS ORDERED: ACETAMINOPHEN 325 MG TAB PO PRN (05:15)
[2016-12-07] MEDS ORDERED: NORC5TAB PO (06:29)
[2016-12-07 08:29] VITALS: BP 139/89; PULSE 80; RESP 16; TEMP 98.3; O2SAT 95
[2016-12-07] MEDS: PANTOPRAZOLE SOD 40 MG DELAYED RELEASE TAB PO SCH (08:36)
[2016-12-07] MEDS: SODIUM CHLORIDE 0.9% FLUSH 5 ML FLUSH FLUSH SCH ×2 (08:37→21:40)
--- NOTE | 2016-12-07 10:55 | HHI.PR ---
Subjective Remarks Follow-up ICH/right hand fracture 12/07/16-patient seen and examined, no acute event overnight and. She was working this morning with PT. Vitals stable Objective Vitals Vital Signs Date Time Temp Pulse Resp B/P Pulse Ox O2 Delivery O2 Flow Rate FiO2 12/07/16 08:29 98.3 80 16 139/89 95 12/07/16 04:20 98.0 88 20 138/80 95 12/07/16 00:00 97.6 82 18 137/87 96 12/06/16 23:00 Room Air 12/06/16 20:00 98.1 76 16 153/90 100 12/06/16 20:00 100 Room Air 12/06/16 20:00 76 12/06/16 15:57 98.6 78 20 138/64 100 12/06/16 11:43 98.6 85 27 115/72 100 I/O 12/06/16 12/06/16 12/06/16 12/07/16 12/07/16 12/07/16 07:00 15:00 23:00 07:00 15:00 23:00 Intake Total 300 ml 120 ml 150 ml Output Total 800 ml 425 ml 600 ml Balance -500 ml -305 ml -450 ml Intake Oral 300 ml 120 ml 150 ml Output Urine Total 800 ml 425 ml 600 ml # Bowel Movements 3 0 1 Result Diagram: 12/06/1652112/06/16521 Imaging Last Impressions Pelvis X-Ray 12/06/16118 Signed Impressions: Service Date/Time: Tuesday, December 06, 2016 02:23 - CONCLUSION: No definite acute abnormality is seen. There is limited visualization of the right femoral neck. Donald Ortiz MD Chest X-Ray 12/06/16118 Signed Impressions: Service Date/Time: Tuesday, December 06, 2016 02:20 - CONCLUSION: Cardiomegaly. Donald Ortiz MD Wrist X-Ray 12/06/16115 Signed Impressions: Service Date/Time: Tuesday, December 06, 2016 02:10 - CONCLUSION: No acute abnormality seen. The bones are osteopenic. Donald Ortiz MD Radius/Ulna X-Ray 12/06/16115 Signed Impressions: Service Date/Time: Tuesday, December 06, 2016 02:13 - CONCLUSION: The radius and ulna are intact. Donald Ortiz MD Humerus X-Ray 12/06/16115 Signed Impressions: Service Date/Time: Tuesday, December 06, 2016 02:17 - CONCLUSION: Fracturing of the proximal and mid right humeral shaft. Donald Ortiz MD Head CT 12/06/16115 Signed Impressions: Service Date/Time: Tuesday, December 06, 2016 02:32 - CONCLUSION: 1. Areas of subarachnoid hemorrhage at the right frontal lobe, subdural hemorrhage of the right parietal lobe, and parenchymal areas of hemorrhage in the left parietal, left temporal and an intraventricular focal hemorrhage in the lateral and third ventricles. These are all acute. 2. Encephalomalacia involving much of the left middle cerebral artery territory from prior infarction. 3. Right periorbital soft tissue swelling and air-fluid level in the right maxillary sinus. An orbital floor fracture cannot be excluded. Donald Ortiz MD Cervical Spine CT 12/06/16115 Signed Impressions: Service Date/Time: Tuesday, December 06, 2016 02:32 - CONCLUSION: 1. No acute bony abnormalities seen. 2. Degenerative change as described above. 3. Tortuous right common carotid artery seen in the prevertebral soft tissues. Donald Ortiz MD Objective Remarks GENERAL: NAD with aphasia SKIN: Warm and dry. HEAD: Normocephalic. EYES: No scleral icterus. No injection or drainage. NECK: Supple, trachea midline. No JVD or lymphadenopathy. CARDIOVASCULAR: Regular rate and rhythm without murmurs, gallops, or rubs. RESPIRATORY: Breath sounds equal bilaterally. No accessory muscle use. GASTROINTESTINAL: Abdomen soft, non-tender, nondistended. MUSCULOSKELETAL: No cyanosis, or edema. Right arm and dressing/bandage Neuro: Left-sided weakness BACK: Nontender without obvious deformity. No CVA tenderness. A/P Problem List: (1) ICH (intracerebral hemorrhage) ICD Code: I61.9 Status: Acute (2) Closed right humeral fracture ICD Code: S42.301A Status: Acute Assessment and Plan 76-year-old female with Intracerebral hemorrhage: Head CT noted and review with finding of Areas of subarachnoid hemorrhage at the right frontal lobe, subdural hemorrhage of the right parietal lobe, and parenchymal areas of hemorrhage in the left parietal, left temporal and an intraventricular focal hemorrhage in the lateral and third ventricles. Neurosurgery has been consulted however recommend conservative treatment. Will repeat head CT in 24 hours if okay with neurosurgery. PT/OT/ speech therapy Fracture of the proximal and mid right humeral shaft: Status post mechanical fall, Humerus x-ray noted and reviewed by me. orthopedic surgery consultation pending Prior history of CVA with aphasia: Chronic; PT consult. Resume Plavix if okay with neurosurgery DVT prophylaxis: Bilateral SCDs Problem Qualifiers (1) Closed right humeral fracture: Qualified Code: S42.301A - Closed fracture of shaft of right humerus, unspecified fracture morphology, initial encounter Reggie Rodriguez MD Dec 07, 2016 10:55
[2016-12-07 12:08] VITALS: BP 193/100; PULSE 88; RESP 16; TEMP 95.5; O2SAT 96
--- NOTE | 2016-12-07 12:26 | MB ---
cc: JAMES MARTIN DATE OF ADMISSION 12/06/2016 DATE OF CONSULTATION 12/07/2016 REASON FOR CONSULTATION Right humeral shaft fracture. HISTORY Kandace is a 76-year-old female who has multiple medical problems. 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 She lives at a local residential. She was found on the ground after having a fall. She does not clearly recall the fall. She was found to have a mildly displaced comminuted right humerus fracture. She is currently awake and is answering most questions appropriately. She complains of right arm pain. The pain is worse with any movement. PAST MEDICAL HISTORY ILLNESSES 1. Hypertension. 2. Depression. 3. COPD. 4. History of CVA. 5. Aphasia. 6. Seizure disorder. 7. History of DVT. 8. Coronary artery disease. SURGERIES 1. Appendectomy. 2. Cholecystectomy. 3. Cataract surgery. 4. Hysterectomy. 5. Right femoral vascular surgery. MEDICATIONS Include Plavix. Please see EMR for this complete list of inpatient medications. ALLERGIES No known drug allergies. FAMILY HISTORY Noncontributory. SOCIAL HISTORY The patient lives in an [facility]. She is not smoke, drink or use drugs currently. REVIEW OF SYSTEMS The patient denies headache, visual changes, neck pain, chest pain, shortness of breath, abdominal pain, nausea, vomiting or recent weight loss. She has chronic right arm and right leg weakness. She has right arm pain. PHYSICAL EXAMINATION GENERAL: The patient is a well-developed, well-nourished 76-year-old female who is awake and alert. She is answering questions appropriately. She does have aphasia. VITAL SIGNS: Temperature 98.3, pulse 80, respirations 16, blood pressure 139/89, O2 sat 95% on room air. HEAD: The patient is normocephalic. NECK: Soft, nontender. Trachea is midline. ABDOMEN: Soft, nontender, nondistended. EXTREMITIES: Examination of right arm reveals pain with any attempted shoulder or elbow motion. Skin is intact. She has mild swelling of the arm and forearm. Sensation is intact in her fingers. She has contractures of her hand secondary to previous stroke and right-sided paresis. Examination of the right leg reveals no active motor function. She has minimal tenderness around her knee. Skin is intact. Sensation is intact in her right foot. Examination of the left leg reveals no significant pain with hip, knee or ankle motion. Skin is intact. Dorsalis pedis pulses palpable. Sensation is intact. Examination of the left arm reveals no significant pain with shoulder, elbow or wrist motion. Skin is intact. Sensation is intact. X-RAYS X-rays of the right humerus were reviewed. X-rays reveal a mildly comminuted long spiral fracture of the humeral shaft. IMPRESSION 1. History of CVA. 2. Osteoporosis. 3. Right-sided hemiparesis. 4. Comminuted right humerus fracture. PLAN The treatment options were discussed with the patient. At this point the patient has decreased function of her right arm secondary to cerebrovascular accident with subsequent hemiparesis. At this point the fracture is reasonably well-aligned. I would recommend nonoperative treatment. The patient will remain in her current splint. She may follow up in office in 7 to 10 days for repeat x-rays and exam of her right humerus. If the fracture does displace significantly, surgical intervention may become necessary. All questions were answered. A mid-level provider in my office, nurse practitioner or PA, may see this patient on a follow-up basis and continue to implement the objective of this plan including: Starting or adjusting medications, injections of muscle, tendon, bursa or joints, cast application, orthotic or brace application, physical therapy, further radiographic studies including x-ray, MRI, CT, ultrasounds or bone scan, vascular studies, neurologic studies, or other specialist consultations, and proceeding with surgical management as appropriate. MD ALVARADO Arzate/CHRISTAL /11:23 AM /12:10 PM ASAD
--- NOTE | 2016-12-07 13:38 | HHI.NSPN ---
Note Status Status: Progress Note Interval History Interval History Ms. Hutchinson is a 76-year-old female with history of large right hemispheric stroke and baseline aphasia. She was reported to be in Hospice care and fell. She was brought to [facility] ED. Work up showed a right humerus fracture and intracranial hemorrhage. She is awake, only says her name, she does not follow commands. A neurosurgical evaluation was requested. 12/07: smiling more today, no neuro changes overnight Labs, Micro, & Vital Signs Results Date Time Temp Pulse Resp B/P Pulse Ox O2 Delivery O2 Flow Rate FiO2 12/07/16 12:08 95.5 88 16 193/100 96 12/07/16 08:29 98.3 80 16 139/89 95 12/07/16 04:20 98.0 88 20 138/80 95 12/07/16 00:00 97.6 82 18 137/87 96 12/06/16 23:00 Room Air 12/06/16 20:00 98.1 76 16 153/90 100 12/06/16 20:00 100 Room Air 12/06/16 20:00 76 12/06/16 15:57 98.6 78 20 138/64 100 12/07/16 07:00 Intake Total 570 ml Output Total 1825 ml Balance -1255 ml Constitutional Vital Signs Date Time Temp Pulse Resp B/P Pulse Ox O2 Delivery O2 Flow Rate FiO2 12/07/16 12:08 95.5 88 16 193/100 96 12/07/16 08:29 98.3 80 16 139/89 95 12/07/16 04:20 98.0 88 20 138/80 95 12/07/16 00:00 97.6 82 18 137/87 96 12/06/16 23:00 Room Air 12/06/16 20:00 98.1 76 16 153/90 100 12/06/16 20:00 100 Room Air 12/06/16 20:00 76 12/06/16 15:57 98.6 78 20 138/64 100 12/07/16 07:00 Intake Total 570 ml Output Total 1825 ml Balance -1255 ml Medications Current Medications Current Medications Medications (Trade) Dose Ordered Sig/Sandra Route PRN Reason Start Time Stop Time Status Last Admin Dose Admin IV Flush (NS Flush) 2 ml UNSCH PRN FLUSH FLUSH AFTER USING IV ACCESS 12/06/16 03:45 IV Flush (NS Flush) 2 ml BID FLUSH 12/06/16 09:00 12/07/16 08:37 Ondansetron HCl (Zofran Inj) 4 mg Q6H PRN IVP NAUSEA OR VOMITING 12/06/16 03:45 Naloxone HCl (Narcan Inj) 0.4 mg UNSCH PRN IV SEE LABEL COMMENTS 12/06/16 03:45 Enalaprilat (Vasotec Inj) 1.25 mg Q6H PRN IV PUSH SBP>160, DBP>90 12/06/16 12:00 Pantoprazole Sodium (Protonix) 40 mg DAILY PO 12/07/16 09:00 12/07/16 08:36 Acetaminophen (Tylenol) 650 mg Q4H PRN PO pain >5 12/07/16 05:15 12/07/16 05:31 Medical Decision Making MDM Remarks 76 y/o female with TBI, small ICH history of large right side CVA with residual aphasia Plan Plan Remarks cont nonsurgical management cont current care Kristi Wright Dec 07, 2016 13:38
[2016-12-07] MEDS: ENALAPRILAT 1.25 MG/ML VIAL IV PUSH PRN (13:50)
[2016-12-07 16:12] VITALS: BP 112/73; PULSE 106; RESP 16; TEMP 95.5; O2SAT 96
[2016-12-07 20:00] VITALS: BP 127/86; PULSE 95; RESP 24; TEMP 99.1; O2SAT 96
[2016-12-08] VITALS: BP 140/73; PULSE 93; RESP 22; TEMP 98.9; O2SAT 94
[2016-12-08 04:00] VITALS: BP 164/98; PULSE 93; RESP 24; TEMP 96.9; O2SAT 94
[2016-12-08 08:00] VITALS: BP 176/96; PULSE 97; RESP 18; TEMP 96.9; O2SAT 98
[2016-12-08] MEDS: PANTOPRAZOLE SOD 40 MG DELAYED RELEASE TAB PO SCH (08:20)
[2016-12-08] MEDS: ENALAPRILAT 1.25 MG/ML VIAL IV PUSH PRN (08:20)
[2016-12-08] MEDS: SODIUM CHLORIDE 0.9% FLUSH 5 ML FLUSH FLUSH SCH ×2 (08:21→21:00)
--- NOTE | 2016-12-08 10:36 | HHI.PR ---
Subjective Remarks Follow-up ICH/right hand fracture 12/07/16-patient seen and examined, no acute event overnight and. She was working this morning with PT. Vitals stable 12/08/16-patient seen and examined. Stable, no change and no acute event overnight. Case discussed with case operator Objective Vitals Vital Signs Date Time Temp Pulse Resp B/P Pulse Ox O2 Delivery O2 Flow Rate FiO2 12/08/16 08:20 Room Air 12/08/16 08:00 96.9 97 18 176/96 98 12/08/16 04:00 96.9 93 24 164/98 94 12/08/16 00:00 98.9 93 22 140/73 94 12/07/16 20:00 Room Air 12/07/16 20:00 99.1 95 24 127/86 96 12/07/16 16:12 95.5 106 16 112/73 96 12/07/16 12:08 95.5 88 16 193/100 96 I/O 12/07/16 12/07/16 12/07/16 12/08/16 12/08/16 12/08/16 07:00 15:00 23:00 07:00 15:00 23:00 Intake Total 150 ml 240 ml 120 ml 60 ml Output Total 600 ml 750 ml 200 ml 200 ml Balance -450 ml -510 ml -80 ml -140 ml Intake Oral 150 ml 240 ml 120 ml 60 ml Output Urine Total 600 ml 750 ml 200 ml 200 ml # Bowel Movements 1 1 1 1 Result Diagram: 12/06/1652112/06/16521 Objective Remarks GENERAL: NAD with aphasia SKIN: Warm and dry. HEAD: Normocephalic. EYES: No scleral icterus. No injection or drainage. NECK: Supple, trachea midline. No JVD or lymphadenopathy. CARDIOVASCULAR: Regular rate and rhythm without murmurs, gallops, or rubs. RESPIRATORY: Breath sounds equal bilaterally. No accessory muscle use. GASTROINTESTINAL: Abdomen soft, non-tender, nondistended. MUSCULOSKELETAL: No cyanosis, or edema. Right arm with splint in place Neuro: Left-sided weakness BACK: Nontender without obvious deformity. No CVA tenderness. Procedures none A/P Problem List: (1) ICH (intracerebral hemorrhage) ICD Code: I61.9 Status: Acute (2) Closed right humeral fracture ICD Code: S42.301A Status: Acute Assessment and Plan 76-year-old female with Intracerebral hemorrhage: Head CT noted and review with finding of Areas of subarachnoid hemorrhage at the right frontal lobe, subdural hemorrhage of the right parietal lobe, and parenchymal areas of hemorrhage in the left parietal, left temporal and an intraventricular focal hemorrhage in the lateral and third ventricles. Neurosurgery has been consulted however recommend conservative treatment. PT/OT/speech therapy Fracture of the proximal and mid right humeral shaft: Status post mechanical fall, Humerus x-ray noted and reviewed by me. orthopedic surgery consultation appreciated and continue with current nonoperative management with Splint; repeat x-ray in 7-10 days Prior history of CVA with aphasia: Chronic; PT consult. resume Plavix if okay with neurosurgery DVT prophylaxis: Bilateral SCDs Discharge Planning Discharged to SNF 12/09/16 Problem Qualifiers (1) Closed right humeral fracture: Qualified Code: S42.301A - Closed fracture of shaft of right humerus, unspecified fracture morphology, initial encounter Reggie Rodriguez MD Dec 08, 2016 10:36
--- NOTE | 2016-12-08 10:49 | HHI.NSPN ---
(Kristi Wright) Note Status Status: Progress Note (Kristi Wright) Interval History Interval History Ms. Hutchinson is a 76-year-old female with history of large right hemispheric stroke and baseline aphasia. She was reported to be in Hospice care and fell. She was brought to [place] ED. Work up showed a right humerus fracture and intracranial hemorrhage. She is awake, only says her name, she does not follow commands. A neurosurgical evaluation was requested. 12/07: smiling more today, no neuro changes overnight 12/08: no acute changes overnight, smiling, appears comfortable (Kristi Wright) Labs, Micro, & Vital Signs Results Date Time Temp Pulse Resp B/P Pulse Ox O2 Delivery O2 Flow Rate FiO2 12/08/16 08:20 Room Air 12/08/16 08:00 96.9 97 18 176/96 98 12/08/16 04:00 96.9 93 24 164/98 94 12/08/16 00:00 98.9 93 22 140/73 94 12/07/16 20:00 Room Air 12/07/16 20:00 99.1 95 24 127/86 96 12/07/16 16:12 95.5 106 16 112/73 96 12/07/16 12:08 95.5 88 16 193/100 96 12/08/16 07:00 Intake Total 420 ml Output Total 1150 ml Balance -730 ml Constitutional Vital Signs Date Time Temp Pulse Resp B/P Pulse Ox O2 Delivery O2 Flow Rate FiO2 12/08/16 08:20 Room Air 12/08/16 08:00 96.9 97 18 176/96 98 12/08/16 04:00 96.9 93 24 164/98 94 12/08/16 00:00 98.9 93 22 140/73 94 12/07/16 20:00 Room Air 12/07/16 20:00 99.1 95 24 127/86 96 12/07/16 16:12 95.5 106 16 112/73 96 12/07/16 12:08 95.5 88 16 193/100 96 12/08/16 07:00 Intake Total 420 ml Output Total 1150 ml Balance -730 ml (Kristi Wright) Review of Systems/Exam Exam Ms. Hutchinson is awake, nonverbal today. Nodding and smiling. Not following commands. Cranial nerve examination: pupils to be equal, round, and reactive to light. Facial appears symmetrical. Face sensation, hearing, visual waller, and olfaction can not be assessed properly due to the patients condition. Right facial ecchymoses. Neck is soft and supple. Muscle strength: Right arm in ortho splint and sling. grossly moved left arm and both legs. Cannot assess detail exam due to clinical condition. Deep tendon reflexes are 1+ in the left upper extremities. In the lower extremities, the patellar and Achilles are 1+, bilaterally. There is left Babinski response. Cerebellar examination is limited due to the patient condition, but no obvious deficits are noted. (Kristi Wright) Medical Decision Making MDM Remarks 76 y/o female with TBI, small ICH history of large right side CVA with residual aphasia (Kristi Wright) Plan Plan Remarks cont nonsurgical management cont current care ok to [facility] back to [facility] from [facility] standpoint, will sign off, call prn (Kristi Wright) Attending Statement The exam, history, and the medical decision-making described in the above note were completed with the assistance of the mid-level provider. I reviewed and agree with the findings presented. I attest that I had a [id number] encounter with the patient on the same day, and personally performed and documented my assessment and findings in the medical record. (Alden Brown MD) Kristi Wright Dec 08, 2016 10:49 Alden Brown MD Dec 09, 2016 19:18
[2016-12-08 12:00] VITALS: BP 154/84; PULSE 94; RESP 18; TEMP 97.1; O2SAT 97
[2016-12-08 16:00] VITALS: BP 158/88; PULSE 99; RESP 18; TEMP 96.9; O2SAT 97
[2016-12-08 20:00] VITALS: BP 137/83; PULSE 98; RESP 22; TEMP 97.4; O2SAT 96
[2016-12-09] VITALS: BP 144/91; PULSE 92; RESP 20; TEMP 97; O2SAT 92
[2016-12-09 04:00] VITALS: BP 125/79; PULSE 95; RESP 20; TEMP 96.9; O2SAT 96
[2016-12-09 08:00] VITALS: BP 132/84; PULSE 94; RESP 18; TEMP 97.1; O2SAT 97
[2016-12-09] MEDS: PANTOPRAZOLE SOD 40 MG DELAYED RELEASE TAB PO SCH (09:00)
[2016-12-09] MEDS: SODIUM CHLORIDE 0.9% FLUSH 5 ML FLUSH FLUSH SCH (09:00)
--- NOTE | 2016-12-09 11:07 | HHI.PR ---
Subjective Remarks Follow-up ICH/right hand fracture 12/07/16-patient seen and examined, no acute event overnight and. She was working this morning with PT. Vitals stable 12/08/16-patient seen and examined. Stable, no change and no acute event overnight. Case discussed with disease case manager 12/09/16-patient seen and examined, remained stable, no acute event overnight, afebrile. Objective Vitals Vital Signs Date Time Temp Pulse Resp B/P Pulse Ox O2 Delivery O2 Flow Rate FiO2 12/09/16 08:00 97.1 94 18 132/84 97 12/09/16 04:00 96.9 95 20 125/79 96 12/09/16 00:00 97.0 92 20 144/91 92 12/08/16 20:55 Room Air 12/08/16 20:00 97.4 98 22 137/83 96 12/08/16 16:00 96.9 99 18 158/88 97 12/08/16 12:00 97.1 94 18 154/84 97 I/O 12/08/16 12/08/16 12/08/16 12/09/16 12/09/16 12/09/16 07:00 15:00 23:00 07:00 15:00 23:00 Intake Total 60 ml 480 ml 240 ml 60 ml Output Total 200 ml 300 ml 50 ml 150 ml Balance -140 ml 180 ml 190 ml -90 ml Intake Oral 60 ml 480 ml 240 ml 60 ml Output Urine Total 200 ml 300 ml 50 ml 150 ml # Bowel Movements 1 1 0 0 Result Diagram: 12/06/1652112/06/16521 Objective Remarks GENERAL: NAD with aphasia SKIN: Warm and dry. HEAD: Normocephalic. EYES: No scleral icterus. No injection or drainage. NECK: Supple, trachea midline. No JVD or lymphadenopathy. CARDIOVASCULAR: Regular rate and rhythm without murmurs, gallops, or rubs. RESPIRATORY: Breath sounds equal bilaterally. No accessory muscle use. GASTROINTESTINAL: Abdomen soft, non-tender, nondistended. MUSCULOSKELETAL: No cyanosis, or edema. Right arm with splint in place Neuro: Left-sided weakness BACK: Nontender without obvious deformity. No CVA tenderness. Procedures none A/P Problem List: (1) ICH (intracerebral hemorrhage) ICD Code: I61.9 Status: Acute (2) Closed right humeral fracture ICD Code: S42.301A Status: Acute Assessment and Plan 76-year-old female with Intracerebral hemorrhage: Head CT noted and review with finding of Areas of subarachnoid hemorrhage at the right frontal lobe, subdural hemorrhage of the right parietal lobe, and parenchymal areas of hemorrhage in the left parietal, left temporal and an intraventricular focal hemorrhage in the lateral and third ventricles. Neurosurgery has been consulted however recommend conservative treatment. PT/OT/speech therapy Fracture of the proximal and mid right humeral shaft: Status post mechanical fall, Humerus x-ray noted . orthopedic surgery consultation appreciated and continue with current nonoperative management with Splint; repeat x-ray in 7-10 days Prior history of CVA with aphasia: Chronic; PT consult. resume Plavix if okay with neurosurgery DVT prophylaxis: Bilateral SCDs Discharge Planning Discharged to SNF 12/09/16 Problem Qualifiers (1) Closed right humeral fracture: Qualified Code: S42.301A - Closed fracture of shaft of right humerus, unspecified fracture morphology, initial encounter Reggie Rodriguez MD Dec 09, 2016 11:07
[2016-12-09] MEDS ORDERED: PANT40TA3 PO (11:08)
[2016-12-09] MEDS ORDERED: ACET325T PO (11:08)
--- NOTE | 2016-12-09 11:10 | HHI.DS ---
Discharge Summary Admission Date Dec 06, 2016 at 03:23 Discharge Date: Dec 09, 2016 Admitting Diagnosis ICH, Right humerus fx s/p fall (1) ICH (intracerebral hemorrhage) ICD Code: I61.9 (2) Closed right humeral fracture ICD Code: S42.301A Procedures none Brief History - From Admission 76-year-old female with a history of aphasia and right-sided hemiparesis from a prior stroke, a resident of a local jail facility was brought in yesterday to the ED for evaluation of ecchymosis to the right high after patient was found on the ground as she has fallen down. Patient is a very poor historian and able to provide any further history however during my exam she was alert and nodding. Head CT revealed multiple area of intracranial bleed for which neurosurgery has been consulted. Right humerus x-ray revealed Fracturing of the proximal and mid right humeral shaft. CBC/BMP: 12/06/1652112/06/16521 Imaging Last Impressions Pelvis X-Ray 12/06/16118 Signed Impressions: Service Date/Time: Tuesday, December 06, 2016 02:23 - CONCLUSION: No definite acute abnormality is seen. There is limited visualization of the right femoral neck. Donald Ortiz MD Chest X-Ray 12/06/16118 Signed Impressions: Service Date/Time: Tuesday, December 06, 2016 02:20 - CONCLUSION: Cardiomegaly. Donald Ortiz MD Wrist X-Ray 12/06/16115 Signed Impressions: Service Date/Time: Tuesday, December 06, 2016 02:10 - CONCLUSION: No acute abnormality seen. The bones are osteopenic. Donald Ortiz MD Radius/Ulna X-Ray 12/06/16115 Signed Impressions: Service Date/Time: Tuesday, December 06, 2016 02:13 - CONCLUSION: The radius and ulna are intact. Donald Ortiz MD Humerus X-Ray 12/06/16115 Signed Impressions: Service Date/Time: Tuesday, December 06, 2016 02:17 - CONCLUSION: Fracturing of the proximal and mid right humeral shaft. Donald Ortiz MD Head CT 12/06/16115 Signed Impressions: Service Date/Time: Tuesday, December 06, 2016 02:32 - CONCLUSION: 1. Areas of subarachnoid hemorrhage at the right frontal lobe, subdural hemorrhage of the right parietal lobe, and parenchymal areas of hemorrhage in the left parietal, left temporal and an intraventricular focal hemorrhage in the lateral and third ventricles. These are all acute. 2. Encephalomalacia involving much of the left middle cerebral artery territory from prior infarction. 3. Right periorbital soft tissue swelling and air-fluid level in the right maxillary sinus. An orbital floor fracture cannot be excluded. Donald Ortiz MD Cervical Spine CT 12/06/16115 Signed Impressions: Service Date/Time: Tuesday, December 06, 2016 02:32 - CONCLUSION: 1. No acute bony abnormalities seen. 2. Degenerative change as described above. 3. Tortuous right common carotid artery seen in the prevertebral soft tissues. Donald Ortiz MD PE at Discharge GENERAL: NAD with aphasia SKIN: Warm and dry. HEAD: Normocephalic. EYES: No scleral icterus. No injection or drainage. NECK: Supple, trachea midline. No JVD or lymphadenopathy. CARDIOVASCULAR: Regular rate and rhythm without murmurs, gallops, or rubs. RESPIRATORY: Breath sounds equal bilaterally. No accessory muscle use. GASTROINTESTINAL: Abdomen soft, non-tender, nondistended. MUSCULOSKELETAL: No cyanosis, or edema. Right arm with splint in place Neuro: Left-sided weakness BACK: Nontender without obvious deformity. No CVA tenderness. Hospital Course Intracerebral hemorrhage: Head CT noted and review with finding of Areas of subarachnoid hemorrhage at the right frontal lobe, subdural hemorrhage of the right parietal lobe, and parenchymal areas of hemorrhage in the left parietal, left temporal and an intraventricular focal hemorrhage in the lateral and third ventricles. Neurosurgery has been consulted however recommend conservative treatment. PT/OT/speech therapy Fracture of the proximal and mid right humeral shaft: Status post mechanical fall, Humerus x-ray noted . orthopedic surgery consultation appreciated and continue with current nonoperative management with Splint; repeat x-ray in 7-10 days Prior history of CVA with aphasia: Chronic; PT consult. Pt Condition on Discharge: Fair Discharge Disposition: Discharge to SNF Discharge Time: > 30 minutes Discharge Instructions DIET: Follow Instructions for: Heart Healthy Diet Activities you can perform: Regular-No Restrictions Follow up Referrals: Orthopedics - 12/17/16 @ [facility] with Casey Scott MD PCP Follow-up - 2-3 Days New Medications: Alprazolam (Xanax) 0.5 Mg Tab 0.5 MG PO Q12HR PRN ANXIETY #10 Ref 0 TAB Hydrocodone-Acetaminophen ([place]) 5-325 mg Tab 1 TAB PO Q4H PRN PAIN #60 Ref 0 TAB Acetaminophen (Acetaminophen) 325 Mg Tab 650 MG PO Q4H PRN pain >5 #20 TAB Pantoprazole (Pantoprazole) 40 Mg Tab 40 MG PO DAILY Manage Heartburn #30 TAB Continued Medications: Albuterol 18 GM Inh (Ventolin Hfa 18 GM Inh) 90 Mcg/Act Aer 2 PUFF INH Q6H SHORTNESS OF BREATH #1 Ref 0 INHALER Arformoterol Neb (Brovana Neb) 15 Mcg/2 Ml Vial 2 INHALER INH BID Maintenance treatment of bronchoconstriction in COPD. Broncospasm #60 NEBULE Bisacodyl Supp (Bisacodyl Supp) 10 Mg Supp 10 MG RECTAL DAILY PRN CONSTIPATION Ref 0 SUPP Budesonide Neb (Budesonide Neb) 0.25 Mg/2 Ml Neb 0.25 MG NEB Q12HR NEB Breathing Treatment #60 Ref 0 NEBULE Calcium (Oyster-Paul 500) 500 Mg Tab 500 MG PO BID TAB Clonidine (Clonidine) 0.1 Mg Tab 0.1 MG PO BID Blood Pressure Management #60 Ref 0 TAB Clopidogrel (Clopidogrel) 75 Mg Tab 75 MG PO DAILY Blood Clot Prevention #30 Ref 0 TAB Cyanocobalamin (Vitamin B-12) 100 Mcg Tab 100 MCG PO DAILY #1 BOTTLE Escitalopram (Lexapro) 5 Mg Tab 5 MG PO DAILY #30 Ref 0 TAB Furosemide (Furosemide) 20 Mg Tab 20 MG PO DAILY #30 Ref 0 TAB Gabapentin (Gabapentin) 100 Mg Cap 200 MG PO TID #90 Ref 0 CAP Isosorbide Mononitrate ER (Isosorbide Mononitrate ER) 30 Mg Vinny 30 MG PO DAILY Prevent Chest Pain #30 Ref 0 TAB Levetiracetam (Levetiracetam) 250 Mg Tab 250 MG PO BID Control Seizures #60 Ref 0 TAB Lorazepam (Lorazepam) 0.5 Mg Tab 0.5 MG PO BID PRN ANXIETY Ref 0 TAB Magnesium Hydroxide Liq (Milk of Magnesia Liq) 400 Mg/5 Ml Susp 30 ML PO DAILY PRN CONSTIPATION Oxybutynin (Ditropan) 5 Mg Tab 2.5 MG PO Q12HR Urinary Symptom Managemen #60 Ref 0 TAB Pravastatin (Pravastatin) 40 Mg Tab 40 MG PO DAILY Cholesterol Management #30 Ref 0 TAB Discontinued Medications: Dextromethorphan-Guaifenesin (Tussin Dm 100-10 mg/5Ml) 1 Syp Syp 10 ML PO Q6HR PRN COUGH Docusate Sodium (Dok) 100 Mg Cap 100 CAP PO BID Epinephrine Inj (Epinephrine Inj) 1 Mg/Ml Inj 1 MG NASAL DAILY PRN ALLERGIC REACTION #1 VIAL Fentanyl Patch 72 HR (Fentanyl Patch 72 HR) 12 Mcg/Hr Patch 1 PATCH T-DERMAL Q72H Remove old patch when new one placed. Pain Management #10 Ref 0 PATCH Fentanyl Patch 72 HR (Fentanyl Patch 72 HR) 50 Mcg/Hr Patch 50 MCG T-DERMAL Q72H Remove old patch when new one placed. Pain Management #10 Ref 0 PATCH Hydrocodone-Acetaminophen (Hydrocodone-Acetaminophen) 10-325 mg Tab 1 TAB PO Q4H PRN PAIN Ref 0 TAB Ipratropium-Albuterol Neb (Duoneb) 0.5-2.5 Mg/3 Ml Neb 1 NEBULE INH BID Breathing Treatment #30 Ref 0 NEBULE Omeprazole (Prilosec) 20 Mg Cap 20 MG PO DAILY #30 Ref 0 CAP Prochlorperazine Supp (Prochlorperazine Supp) 25 Mg Supp 25 MG RECTAL Q6H PRN NAUSEA OR VOMITING Ref 0 Reggie Benoit MD Dec 09, 2016 11:10
[2016-12-09] MEDS ORDERED: LEXA5TAB PO (11:47)
[2016-12-09] MEDS ORDERED: LEVE250T5 PO (11:47)
[2016-12-09] MEDS ORDERED: PRIL20CA9 PO (11:47)
[2016-12-09] MEDS ORDERED: VENTAER INH (11:47)
[2016-12-09] MEDS ORDERED: HYDR-3583 PO (11:47)
[2016-12-09] MEDS ORDERED: BISA10SU3 RECTAL (11:47)
[2016-12-09] MEDS ORDERED: OXYB5TAB10 PO (11:47)
[2016-12-09] MEDS ORDERED: BROV15NE INH (11:47)
[2016-12-09] MEDS ORDERED: GABA100C4 PO (11:47)
[2016-12-09] MEDS ORDERED: ISOS30TA3 PO (11:47)
[2016-12-09] MEDS ORDERED: CLOP75TA PO (11:47)
[2016-12-09 12:00] VITALS: BP 128/78; PULSE 92; RESP 18; TEMP 97.9; O2SAT 97
[2016-12-09] MEDS ORDERED: PRAV40TA2 PO (12:01)
[2016-12-09] MEDS ORDERED: MILKSUS4 PO (12:01)
[2016-12-09] MEDS ORDERED: FENT50DI T-DERMAL (12:01)
[2016-12-09] MEDS ORDERED: IPRASOL INH (12:01)
[2016-12-09] MEDS ORDERED: DOCU1CAP39 PO (12:01)
[2016-12-09] MEDS ORDERED: VITA100T PO (12:01)
[2016-12-09] MEDS ORDERED: FENT12DI T-DERMAL (12:01)
[2016-12-09] MEDS ORDERED: TUSS100S3 PO (12:01)
[2016-12-09] MEDS ORDERED: EPIN1INJ21 NASAL (12:01)
[2016-12-09] MEDS ORDERED: FURO20TA PO (12:01)
[2016-12-09] MEDS ORDERED: BUDE0.25 NEB (12:01)
[2016-12-09] MEDS ORDERED: OYST500T77 PO (12:01)
[2016-12-09] MEDS ORDERED: LORA-373 PO (12:01)
[2016-12-09] MEDS ORDERED: PROC25SU22 RECTAL (12:01)
[2016-12-09] MEDS ORDERED: CLON0.1T PO (12:01)
[2016-12-09] MEDS ORDERED: ALPR.5 PO (12:12)
[2016-12-09] MEDS ORDERED: PILL SPLITTER OTHER PRN (12:30)
[2016-12-09] MEDS: GABAPENTIN 100 MG CAP PO SCH ×2 (13:00→18:00)
[2016-12-09] MEDS ORDERED: ALBUTEROL SULFATE 90 MCG/ACT HFA 8 GM INHALER INH SCH (14:00)
[2016-12-09 16:00] VITALS: BP 136/82; PULSE 90; RESP 18; TEMP 98.6; O2SAT 98
[2016-12-09] MEDS ORDERED: RESP: BUDESONIDE 0.25 MG/2 ML NEB NEB SCH (20:00)
[2016-12-09] MEDS ORDERED: ARFORMOTEROL INH SCH (21:00)
[2016-12-09] MEDS ORDERED: levETIRAcetam 250 MG TAB PO SCH (21:00)
[2016-12-09] MEDS ORDERED: OXYBUTYNIN CHLORIDE 5 MG TAB PO SCH (21:00)
[2016-12-09] MEDS ORDERED: cloNIDine HCL 0.1 MG TAB PO SCH (21:00)
[2016-12-10] MEDS ORDERED: FUROSEMIDE 20 MG TAB PO SCH (09:00)
[2016-12-10] MEDS ORDERED: CLOPIDOGREL 75 MG TAB PO SCH (09:00)
[2016-12-10] MEDS ORDERED: ESCITALOPRAM OXALATE 10 MG TAB PO SCH (09:00)
[2016-12-10] MEDS ORDERED: PRAVASTATIN SOD 40 MG TAB PO SCH (09:00)
== END 2016-12-09 18:34 | DRG 86 ==
LOC: NEPE 00:51 → NEDA 03:23 → N03A 06:16 → N05A 23:19
PROVIDERS: ADMIT Hospitalist; ATTEND Hospitalist
DX: S06.6X0A Traumatic subarachnoid hemorrhage without loss of consciousness, initial encounter (principal); I69.351 Hemiplegia and hemiparesis following cerebral infarction affecting right dominant side; J44.9 Chronic obstructive pulmonary disease, unspecified; S42.351A Displaced comminuted fracture of shaft of humerus, right arm, initial encounter for closed fracture; S06.5X0A Traumatic subdural hemorrhage without loss of consciousness, initial encounter; I69.320 Aphasia following cerebral infarction; K59.00 Constipation, unspecified; W18.30XA Fall on same level, unspecified, initial encounter; F32.9 Major depressive disorder, single episode, unspecified; Y92.129 Unspecified place in nursing home as the place of occurrence of the external cause; I25.10 Atherosclerotic heart disease of native coronary artery without angina pectoris; I10 Essential (primary) hypertension; Z66 Do not resuscitate; Z87.891 Personal history of nicotine dependence; Z86.718 Personal history of other venous thrombosis and embolism
CPT/HCPCS: 51702; 70450; 71010; 72125; 72170; 73060; 73090; 73110; 80048; 80053; 81001; 82140; 82550; 82552; 83605; 83690; 83735; 83880; 84443; 84484; 85025; 85610; 85730; 87641; 93005

== ENCOUNTER 2017-11-13 06:33 | Emergency (ER) | payer MEDICARE ==
[~2017-11-13] VITALS: Ht 157.5 cm; Wt 68.2 kg
[~2017-11-13 06:33] MED LIST changes: -ACET325 PO; +ACET325T PO; -ALBU8I INH; +ALPR.5 PO; +BISA10SU3 RECTAL; -BISA10SU8 PR; -BUDE.25I NEB; +BUDE0.25 NEB; -CLON.1 PO; -CLON.2 PO; +CLON0.1T PO; -DOCU1CAP39 PO; -EPIN1INJ20; -FENT12DI T-DERMAL; -FENT50DI TD; -FERR324T4 PO; -FURO20 PO; +FURO20TA PO; -ISOS30 PO; +ISOS30TA3 PO; -LEVE250 PO; +LEVE250T5 PO; -LORA.5 PO; +LORA0.5T PO; -LORTA5 PO; -MAGN30S PO; +MILKSUS4 PO; -MIRA33502 PO; +NORC5TAB PO; -OXYB5TAB PO; +OXYB5TAB8 PO; +OYST500T77 PO; +PANT40TA3 PO; -PRAV40 PO; +PRAV40TA2 PO; -PRIL20CA PO; -PROC1TAB8 PO; -SENN8.6T19 PO; +VENTAER INH; +VITA100T PO; -VITA100T15 PO; -[UNRECOGNIZED DRUG - CODE] PO
[2017-11-13 06:37] VITALS: BP 151/92; PULSE 83; RESP 18; TEMP 97.5; O2SAT 95
[2017-11-13] MEDS ORDERED: VENTAER INH (06:58)
[2017-11-13] MEDS ORDERED: POTA10CA PO (06:58)
[2017-11-13] MEDS ORDERED: IPRASOL INH (06:58)
[2017-11-13] MEDS ORDERED: CALC500 (06:58)
[2017-11-13] MEDS ORDERED: VITATAB43 PO (06:58)
[2017-11-13] MEDS ORDERED: XANA1TAB2 PO (06:58)
--- NOTE | 2017-11-13 07:02 | PD ---
HPI Chief Complaint: Fall Time Seen by Provider: 06:52 Travel History International Travel<30 days: No Contact w/Intl Traveler<30days: No Traveled to known affect area: No History of Present Illness HPI The patient is a 77-year-old female that was sent from the [facility] because she was found on the floor of the bathroom. The patient does not remember the fall, this is not unusual for her apparently. There is a question whether she even fell at all. It was not witnessed. The patient denies any new injury. 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 She cannot walk and she has very little use of her right arm and right leg. She denies any headache or head trauma. She specifically denies any C-spine, T- spine or LS-spine pain. She does take Lopid a grill apparently for stroke prevention. She comes with a DO NOT RESUSCITATE order. Her pain level is 0. 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) Endocrine: No Gastrointestinal Disorders: No Genitourinary: No Headaches: No Hepatitis: No Hiatal Hernia: No Hypertension: Yes Immune Disorder: No Musculoskeletal: No Neurologic: Yes (STROKE, APHASIA, RIGHT SIDE PARALYSIS) Psychiatric: No Reproductive: No Respiratory: Yes (COPD) Immunizations Current: Yes Seizures: Yes Thyroid Disease: No ?: Not Menopausal: Yes Past Surgical History Abdominal Surgery: Yes (APPY) AICD: No Appendectomy: Yes Cholecystectomy: Yes Eye Surgery: No Gynecologic Surgery: Yes (HYSTERECTOMY) Hysterectomy: Yes Joint Replacement: Yes (RIGHT KNEE) Oral Surgery: Yes (T & A) Pacemaker: No Other Surgery: Yes (RIGHT FEMORAL ARTERIGORAM WITH GRAFT PLACEMENT. 01/23/12) Social History Alcohol Use: No Tobacco Use: No (QUIT 20 YEARS AGO) Substance Use: No Allergies-Medications (Allergen,Severity, Reaction): Coded Allergies: *MDRO Multi-Drug Resistant Organism (Verified Adverse Reaction, Unknown, MRSA, 12/07/16) MRSA PCR (nares) POSITIVE - 12/06/16 Reported Meds & Prescriptions Reported Meds & Active Scripts Active Xanax (Alprazolam) 0.5 Mg Tab 0.5 Mg PO Q12HR PRN Pantoprazole (Pantoprazole Sodium) 40 Mg Tab 40 Mg PO DAILY [place] (Hydrocodone-Acetaminophen) 5-325 mg Tab 1 Tab PO Q4H PRN Reported Potassium Chloride ER (Potassium Chloride) 10 Meq Cap 10 Meq PO DAILY Oyster Calcium (Oyster Shell) 500 Mg Calcium (1250 Mg) Tab Xanax (Alprazolam) 1 Mg Tab 1 Mg PO Q12HR PRN Duoneb (Ipratropium-Albuterol Neb) 0.5-2.5 Mg/3 Ml Neb 1 Nebule INH BID Vitamin P88-Hwjkp Acid (Cobalamine Combinations) 500-400 Mcg Tab 1 Tab PO DAILY Ventolin Hfa 18 GM Inh (Albuterol Sulfate) 90 Mcg/Act Aer 2 Puff INH Q4-6H PRN Milk of Magnesia Liq (Magnesium Hydroxide) 400 Mg/5 Ml Susp 30 Ml PO DAILY PRN Budesonide Neb 0.25 Mg/2 Ml Neb 0.25 Mg NEB Q12HR NEB Lorazepam 0.5 Mg Tab 0.5 Mg PO BID PRN Pravastatin 40 Mg Tab 40 Mg PO DAILY Clonidine (Clonidine HCl) 0.1 Mg Tab 0.1 Mg PO BID Furosemide 20 Mg Tab 20 Mg PO DAILY Bisacodyl Supp (Bisacodyl) 10 Mg Supp 10 Mg RECTAL DAILY PRN Ditropan (Oxybutynin Chloride) 5 Mg Tab 2.5 Mg PO Q12HR Gabapentin 100 Mg Cap 200 Mg PO TID Lexapro (Escitalopram Oxalate) 5 Mg Tab 5 Mg PO DAILY Isosorbide Mononitrate ER (Isosorbide Mononitrate) 30 Mg Vinny 30 Mg PO DAILY Brovana Neb (Arformoterol Neb) 15 Mcg/2 Ml Vial 2 Inhaler INH BID Maintenance treatment of bronchoconstriction in COPD. Clopidogrel (Clopidogrel Bisulfate) 75 Mg Tab 75 Mg PO DAILY Ventolin Hfa 18 GM Inh (Albuterol Sulfate) 90 Mcg/Act Aer 2 Puff INH Q6H Levetiracetam 250 Mg Tab 250 Mg PO BID Review of Systems ROS Limitations: Poor Historian Except as stated in HPI: all other systems reviewed are Neg Physical Exam Narrative GENERAL: Well-nourished, elderly patient who is confused as to the year and the city she is in. The blood pressure is 150/90 the rest of the vital signs are normal. The patient is wearing a diaper and smells strongly of urine. SKIN: Focused skin assessment warm/dry. No contusions are noted. HEAD: Normocephalic. Neither raccoon eyes nor mejia sign is present. EYES: No scleral icterus. No injection or drainage. NECK: Supple, trachea midline. No JVD or lymphadenopathy. There is no posterior spinous process tenderness or deformity on the neck. There is no tenderness anywhere on the neck. CARDIOVASCULAR: Regular rate and rhythm without murmurs, gallops, or rubs. RESPIRATORY: Breath sounds equal bilaterally. No accessory muscle use. GASTROINTESTINAL: Abdomen soft, non-tender, nondistended. MUSCULOSKELETAL: No cyanosis, or edema. No tenderness is present over the T- spine and LS-spine. No deformity is noted there either. No CVA tenderness is present. ENT: No hemotympanum is present. No blood is present in the nose or mouth. No dental trauma is present. ENT: There is no hemotympanum present. Data Data Last Documented VS Vital Signs Date Time Temp Pulse Resp B/P (MAP) Pulse Ox O2 Delivery O2 Flow Rate FiO2 11/13/17 06:45 18 95 Room Air 11/13/17 06:37 97.5 83 151/92 (111) Orders Orders Urinalysis - C+S If Indicated (11/13/17 07:02) Cath For Specimen (11/13/17 07:03) MDM Medical Decision Making Medical Screen Exam Complete: Yes Emergency Medical Condition: Yes Medical Record Reviewed: Yes Differential Diagnosis Head trauma, neck trauma, spinal trauma, pelvic trauma, abdominal trauma, urinary tract infection, extremity trauma Narrative Course It is now 0700 and the patient is transferred to Dr. Kennedy. Dale Martinez MD Nov 13, 2017 07:02
[2017-11-13 07:29] LABS: BILIRUBIN, URINE NEG (NEG); BLOOD, URINE NEG (NEG); GLUCOSE,URINE NEG (NEG); KETONE, URINE NEG (NEG); NITRITE,URINE NEG (NEG); PH, URINE 7.5 (5.0-8.5); URINE LEUKOCYTE ESTERASE NEG (NEG)
[2017-11-13 07:34] LABS: URINE COLOR STRAW (YELLW/STRAW)
[2017-11-13 07:35] LABS: SQUAMOUS EPITHELIAL CELL URINE 0-5 /hpf (0-5)
[2017-11-13 07:47] VITALS: BP 143/102; PULSE 66; RESP 16; O2SAT 95
[2017-11-13 09:00] VITALS: BP 143/82; PULSE 79; RESP 18; O2SAT 95
--- NOTE | 2017-11-13 09:11 | PD ---
Data Data Last Documented VS Vital Signs Date Time Temp Pulse Resp B/P (MAP) Pulse Ox O2 Delivery O2 Flow Rate FiO2 11/13/17 10:45 83 18 144/89 (107) 94 11/13/17 09:00 Room Air 11/13/17 06:37 97.5 Orders Orders Urinalysis - C+S If Indicated (11/13/17 07:02) Cath For Specimen (11/13/17 07:03) Ed Discharge Order (11/13/17 09:11) Labs Laboratory Tests Test 11/13/17 07:15 Urine Collection Type CLEAN CATCH Urine Color STRAW Urine Turbidity CLEAR Urine pH 7.5 Urine Specific [place] 1.006 Urine Protein 30 mg/dL Urine Glucose (UA) NEG mg/dL Urine Ketones NEG mg/dL Urine Occult Blood NEG Urine Nitrite NEG Urine Bilirubin NEG Urine Leukocyte Esterase NEG Urine Squamous Epithelial Cells 0-5 /hpf Microscopic Urinalysis Comment CULT NOT INDICATED MDM Supervised Visit with MOODY: No Narrative Course Patient CARE assume from Dr. Martinez at 0700, patient appears to be at her neurologic baseline based on previous ER reports at this institution, nursing discussed with care home staff that the patient does have a dense expressive aphasia at all times and dense right upper and right lower extremity weakness, has no signs of trauma and agree with Dr. Martinez's assessment, UA negative, as no indication for further workup this time she is stable for discharge Diagnosis Primary Impression: Fall Disposition: 01 DISCHARGE HOME Condition: Stable Fred Kennedy MD Nov 13, 2017 09:11
[2017-11-13 10:45] VITALS: BP 144/89
== END 2017-11-13 10:45 | disposition home or self-care (01) ==
LOC: PHED 06:33
DX: R47.01 Aphasia (principal); I69.351 Hemiplegia and hemiparesis following cerebral infarction affecting right dominant side; J44.9 Chronic obstructive pulmonary disease, unspecified; I10 Essential (primary) hypertension; I25.10 Atherosclerotic heart disease of native coronary artery without angina pectoris; E78.00 Pure hypercholesterolemia, unspecified; F32.9 Major depressive disorder, single episode, unspecified; W19.XXXA Unspecified fall, initial encounter; Y92.121 Bathroom in nursing home as the place of occurrence of the external cause; Z66 Do not resuscitate; Z86.718 Personal history of other venous thrombosis and embolism; Z79.899 Other long term (current) drug therapy
CPT/HCPCS: 81001; 99283; P9612

== ENCOUNTER 2018-01-31 19:50 | Emergency (ER) | payer MEDICARE ==
[~2018-01-31] VITALS: Ht 160 cm; Wt 87.0 kg
[~2018-01-31 19:50] MED LIST changes: -ACET325T PO; +CALC500; +IPRASOL INH; -OYST500T77 PO; +POTA10CA PO; -VITA100T PO; +VITATAB43 PO; +XANA1TAB2 PO
[2018-01-31 20:00] VITALS: BP 143/87; PULSE 86; RESP 18; TEMP 98.7; O2SAT 93
--- NOTE | 2018-01-31 20:27 | PD ---
HPI Chief Complaint: Fall Time Seen by Provider: 20:18 Travel History International Travel<30 days: No Contact w/Intl Traveler<30days: No Traveled to known affect area: No History of Present Illness HPI 77-year-old female brought in by ambulance from her correction for evaluation after sliding off her wheelchair and landing on the ground. Apparently she struck her head on the ground and now has ecchymosis to her right forehead. Patient does not recall the incident, however she is denying any symptoms. She denies head neck or back pain. No chest pain or dyspnea. No upper or lower extremity pain. No abdominal pain. Patient has history of CVA with right hemiparesis and aphasia. She is on Plavix. 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) Endocrine: No Gastrointestinal Disorders: No Genitourinary: No Headaches: No Hepatitis: No Hiatal Hernia: No Hypertension: Yes Immune Disorder: No Medical other: No Musculoskeletal: No Neurologic: Yes (STROKE, APHASIA, RIGHT SIDE PARALYSIS) Psychiatric: No Reproductive: No Respiratory: Yes (COPD) Immunizations Current: Yes Seizures: Yes Thyroid Disease: No Tetanus Vaccination: Unknown Influenza Vaccination: No Menopausal: Yes Past Surgical History Abdominal Surgery: Yes (APPY) AICD: No Appendectomy: Yes Cholecystectomy: Yes Eye Surgery: No Gynecologic Surgery: Yes (HYSTERECTOMY) Hysterectomy: Yes Joint Replacement: Yes (RIGHT KNEE) Oral Surgery: Yes (T & A) Pacemaker: No Other Surgery: Yes (RIGHT FEMORAL ARTERIGORAM WITH GRAFT PLACEMENT. 01/23/12) Social History Alcohol Use: No Tobacco Use: No (QUIT 20 YEARS AGO) Substance Use: No Allergies-Medications (Allergen,Severity, Reaction): Coded Allergies: *MDRO Multi-Drug Resistant Organism (Verified Adverse Reaction, Unknown, MRSA, 12/07/16) MRSA PCR (nares) POSITIVE - 12/06/16 Reported Meds & Prescriptions Reported Meds & Active Scripts Active Xanax (Alprazolam) 0.5 Mg Tab 0.5 Mg PO Q12HR PRN Pantoprazole (Pantoprazole Sodium) 40 Mg Tab 40 Mg PO DAILY [place] (Hydrocodone-Acetaminophen) 5-325 mg Tab 1 Tab PO Q4H PRN Reported Potassium Chloride ER (Potassium Chloride) 10 Meq Cap 10 Meq PO DAILY Oyster Calcium (Oyster Shell) 500 Mg Calcium (1250 Mg) Tab Xanax (Alprazolam) 1 Mg Tab 1 Mg PO Q12HR PRN Duoneb (Ipratropium-Albuterol Neb) 0.5-2.5 Mg/3 Ml Neb 1 Nebule INH BID Vitamin X42-Zrrew Acid (Cobalamine Combinations) 500-400 Mcg Tab 1 Tab PO DAILY Ventolin Hfa 18 GM Inh (Albuterol Sulfate) 90 Mcg/Act Aer 2 Puff INH Q4-6H PRN Milk of Magnesia Liq (Magnesium Hydroxide) 400 Mg/5 Ml Susp 30 Ml PO DAILY PRN Budesonide Neb 0.25 Mg/2 Ml Neb 0.25 Mg NEB Q12HR NEB Lorazepam 0.5 Mg Tab 0.5 Mg PO BID PRN Pravastatin 40 Mg Tab 40 Mg PO DAILY Clonidine (Clonidine HCl) 0.1 Mg Tab 0.1 Mg PO BID Furosemide 20 Mg Tab 20 Mg PO DAILY Bisacodyl Supp (Bisacodyl) 10 Mg Supp 10 Mg RECTAL DAILY PRN Ditropan (Oxybutynin Chloride) 5 Mg Tab 2.5 Mg PO Q12HR Gabapentin 100 Mg Cap 200 Mg PO TID Lexapro (Escitalopram Oxalate) 5 Mg Tab 5 Mg PO DAILY Isosorbide Mononitrate ER (Isosorbide Mononitrate) 30 Mg Vinny 30 Mg PO DAILY Brovana Neb (Arformoterol Neb) 15 Mcg/2 Ml Vial 2 Inhaler INH BID Maintenance treatment of bronchoconstriction in COPD. Clopidogrel (Clopidogrel Bisulfate) 75 Mg Tab 75 Mg PO DAILY Ventolin Hfa 18 GM Inh (Albuterol Sulfate) 90 Mcg/Act Aer 2 Puff INH Q6H Levetiracetam 250 Mg Tab 250 Mg PO BID Review of Systems Except as stated in HPI: all other systems reviewed are Neg Physical Exam Narrative GENERAL: Well-developed, well-nourished, awake, alert, GCS 15, no apparent distress. SKIN: Focused skin assessment warm/dry. Slight ecchymosis to right face, lateral to right eye. HEAD: Slight ecchymosis to right face, lateral to right eye. No craniofacial step-offs. Normocephalic. EYES: Pupils equal and round. EOMI. No scleral icterus. No injection or drainage. ENT: No nasal bleeding or discharge. Mucous membranes pink and moist. NECK: Trachea midline. No JVD. No midline cervical spine step-off or tenderness. CARDIOVASCULAR: Regular rate and rhythm. RESPIRATORY: No accessory muscle use. Clear to auscultation. Breath sounds equal bilaterally. GASTROINTESTINAL: Abdomen soft, non-tender, nondistended. MUSCULOSKELETAL: No obvious deformities. No clubbing. No cyanosis. No edema. NEUROLOGICAL: Awake and alert. Right facial droop which is apparently old from previous CVA. Slight dysphasia. Right upper extremity with slight contracture with inability to move right arm or right leg. Normal range of motion in left arm and left leg. PSYCHIATRIC: Appropriate mood and affect; insight and judgment normal. Data Data Last Documented VS Vital Signs Date Time Temp Pulse Resp B/P (MAP) Pulse Ox O2 Delivery O2 Flow Rate FiO2 01/31/18 20:56 18 94 Nasal Cannula 2.00 01/31/18 20:15 81 01/31/18 20:00 98.7 143/87 (105) Orders Orders Basic Metabolic Panel (Bmp) (01/31/18 20:21) Complete Blood Count With Diff (01/31/18 20:21) Prothrombin Time / Inr (Pt) (01/31/18 20:21) Act Partial Throm Time (Ptt) (01/31/18 20:21) Urinalysis - C+S If Indicated (01/31/18 20:21) Iv Access Insert/Monitor (01/31/18 20:21) Ecg Monitoring (01/31/18 20:21) Oximetry (01/31/18 20:21) Sodium Chloride 0.9% Flush (Ns Flush) (01/31/18 20:30) Ct Brain W/O Iv Contrast(Rout) (01/31/18 ) Ct Cerv Spine W/O Contrast (01/31/18 ) ^ Straight Catheter (01/31/18 21:15) Urine Culture (01/31/18 20:54) Nitrofurantoin Monohyd Macrocr (Macrobid (01/31/18 23:00) Labs Laboratory Tests Test 01/31/18 20:54 White Blood Count 6.2 TH/MM3 Red Blood Count 5.17 MIL/MM3 Hemoglobin 14.4 GM/DL Hematocrit 45.9 % Mean Corpuscular Volume 88.8 FL Mean Corpuscular Hemoglobin 27.9 PG Mean Corpuscular Hemoglobin Concent 31.5 % Red Cell Distribution Width 14.1 % Platelet Count 220 TH/MM3 Mean Platelet Volume 8.8 FL Neutrophils (%) (Auto) 75.3 % Lymphocytes (%) (Auto) 16.9 % Monocytes (%) (Auto) 4.7 % Eosinophils (%) (Auto) 2.4 % Basophils (%) (Auto) 0.7 % Neutrophils # (Auto) 4.7 TH/MM3 Lymphocytes # (Auto) 1.1 TH/MM3 Monocytes # (Auto) 0.3 TH/MM3 Eosinophils # (Auto) 0.1 TH/MM3 Basophils # (Auto) 0.0 TH/MM3 CBC Comment DIFF FINAL Differential Comment Prothrombin Time 10.8 SEC Prothromb Time International Ratio 1.1 RATIO Activated Partial Thromboplast Time 29.0 SEC Urine Color YELLOW Urine Turbidity SL CLOUDY Urine pH 7.0 Urine Specific [place] 1.010 Urine Protein TRACE mg/dL Urine Glucose (UA) NEG mg/dL Urine Ketones NEG mg/dL Urine Occult Blood LARGE Urine Nitrite NEG Urine Bilirubin NEG Urine Urobilinogen 0.2 MG/DL Urine Leukocyte Esterase SMALL Urine RBC 10-14 /hpf Urine WBC 0-2 /hpf Urine Squamous Epithelial Cells 0-5 /hpf Urine Bacteria FEW /hpf Microscopic Urinalysis Comment CATH-CULTURE IND Blood Urea Nitrogen 21 MG/DL Creatinine 1.30 MG/DL Random Glucose 83 MG/DL Calcium Level 9.1 MG/DL Sodium Level 140 MEQ/L Potassium Level 3.5 MEQ/L Chloride Level 104 MEQ/L Carbon Dioxide Level 32.4 MEQ/L Anion Gap 4 MEQ/L Estimat Glomerular Filtration Rate 40 ML/MIN [facility] Medical Decision Making Medical Screen Exam Complete: Yes Emergency Medical Condition: Yes Medical Record Reviewed: Yes Differential Diagnosis Mechanical fall, intracranial trauma, cervical spine injury, UTI, metabolic abnormality Narrative Course Vital signs reviewed. Patient's O2 saturation is 95% on room air. Chart review shows that she has had this in the past and has history of COPD. She is not in any respiratory distress. No wheezes on exam. CBC is unremarkable. BMP is remarkable for BUN 21, creatinine 1.3, GFR 40 which is around her baseline. Catheterized urine specimen: Large occult blood, small leukocyte esterase, 10-14 RBCs, few bacteria CT brain: CONCLUSION: No acute intracranial findings CT cervical spine: CONCLUSION: No acute bony injury to cervical spine. Mild bony and asymmetrically right- sided foraminal stenosis at C5-6 related to severe degenerative spondylosis Patient will be started on Macrobid. She is stable for discharge back to her correction. Diagnosis Primary Impression: Fall Qualified Codes: W19.XXXA - Unspecified fall, initial encounter Additional Impressions: Closed head injury Qualified Codes: S09.90XA - Unspecified injury of head, initial encounter UTI (urinary tract infection) Qualified Codes: N39.0 - Urinary tract infection, site not specified; R31.9 - Hematuria, unspecified Referrals: Primary Care Physician 3 days Additional Instructions: Follow-up with your primary care physician this week. Return to the emergency department for worsening symptoms or any other concerns. Scripts Nitrofurantoin Monohydrate Macrocrystals (Macrobid) 100 Mg Cap 100 MG PO BID for Infection for 5 Days, #10 CAP 0 Refills Prov: Jr Coughlin MD 01/31/18 Disposition: 01 DISCHARGE HOME Condition: Stable Jr Coughlin MD Jan 31, 2018 20:26
[2018-01-31] MEDS ORDERED: SODIUM CHLORIDE 0.9% FLUSH 10 ML FLUSH IV FLUSH PRN (20:30)
[2018-01-31 20:56] VITALS: RESP 18; O2SAT 94
[2018-01-31 21:01] LABS: BILIRUBIN, URINE NEG (NEG); BLOOD, URINE LARGE (NEG); GLUCOSE,URINE NEG (NEG); KETONE, URINE NEG (NEG); NITRITE,URINE NEG (NEG); URINE COLOR YELLOW (YELLW/STRAW); URINE LEUKOCYTE ESTERASE SMALL (NEG)
[2018-01-31 21:02] LABS: AUTOMATED NEUTROPHIL # 4.7 TH/MM3 (1.8-7.7); BASOPHIL % 0.7 % (0.0-2.0); EOSINOPHIL # 0.1 TH/MM3 (0-0.4); EOSINOPHIL % 2.4 % (0.0-4.0); HEMATOCRIT 45.9 % (35.0-46.0); HEMOGLOBIN 14.4 GM/DL (11.6-15.3); LYMPH % 16.9 % (9.0-44.0); LYMPHOCYTE # 1.1 TH/MM3 (1.0-4.8); MEAN CELL VOLUME 88.8 FL (80.0-100.0); MEAN CORPUSCULAR HEMOGLOBIN 27.9 PG (27.0-34.0); MEAN CORPUSCULAR HGB CONC 31.5 % (32.0-36.0); MEAN PLATELET VOLUME 8.8 FL (7.0-11.0); MONO % 4.7 % (0.0-8.0); MONOCYTE # 0.3 TH/MM3 (0-0.9); NEUT % 75.3 % (16.0-70.0); PLATELET COUNT 220 TH/MM3 (150-450); RED BLOOD COUNT 5.17 MIL/MM3 (4.00-5.30); RED CELL DISTRIBUTION WIDTH 14.1 % (11.6-17.2); WHITE BLOOD COUNT 6.2 TH/MM3 (4.0-11.0)
[2018-01-31 21:11] LABS: BICARBONATE 32.4 MEQ/L (21.0-32.0); CALCIUM 9.1 MG/DL (8.5-10.1)
[2018-01-31 21:13] LABS: INTERNATIONAL NORMALIZED RATIO 1.1 RATIO; PROTHROMBIN TIME - PATIENT 10.8 SEC (9.8-11.6)
[2018-01-31 21:15] LABS: CREATININE 1.3 MG/DL (0.50-1.00)
[2018-01-31 21:22] LABS: WBC, URINE 0-2 /hpf (0-5)
[2018-01-31 21:23] LABS: BACTERIA, URINE FEW /hpf; SQUAMOUS EPITHELIAL CELL URINE 0-5 /hpf (0-5)
--- NOTE | 2018-01-31 22:07 | RADRPT ---
EXAM DATE/TIME: 01/31/2018 21:38 [facility] COMPARISON: CT BRAIN W/O CONTRAST, December 06, 2016, 2:32. INDICATIONS : Slid out of wheelchair and onto floor. Pain. RADIATION DOSE: 64.69 CTDIvol (mGy) MEDICAL HISTORY : Cerebrovascular disease. Deep venous thrombosis. Chronic obstructive pulmonary disease.Hypertension. SURGICAL HISTORY : Appendectomy. Hysterectomy. ENCOUNTER: Initial ACUITY: 1 day PAIN SCALE: 5/10 LOCATION: cranial TECHNIQUE: Multiple contiguous axial images were obtained of the head. Using automated exposure control and adj ustment of the mA and/or kV according to patient size, radiation dose was kept as low as reasonably a chievable to obtain optimal diagnostic quality images. DICOM format image data is available electro nically for review and comparison. FINDINGS: Old left MCA stroke with some associated peripheral cortical calcification. Mild ex vacuo expansion o f the left lateral ventricle. The right hemisphere and the posterior fossa and brainstem structures a re stable and benign in appearance. There is no evidence of acute intracranial injury. No evidence of mass or hemorrhage and no evidence of acute infarction. CONCLUSION: No acute intracranial findings Donald Briggs MD on January 31, 2018 at 22:03 Board Certified Radiologist. This report was verified electronically.
--- NOTE | 2018-01-31 22:14 | RADRPT ---
EXAM DATE/TIME: 01/31/2018 21:38 [facility] COMPARISON: No previous studies available for comparison. INDICATIONS : Slid out of wheelchair and onto floor. Pain. RADIATION DOSE: 26.49 CTDIvol (mGy) MEDICAL HISTORY : Cerebrovascular disease. Deep venous thrombosis. Chronic obstructive pulmonary disease.Hypertension. SURGICAL HISTORY : Appendectomy. Hysterectomy. ENCOUNTER: Initial ACUITY: 1 day PAIN SCALE: 5/10 LOCATION: neck TECHNIQUE: Volumetric scanning of the cervical spine was performed. Multiplanar reconstructions in the sagittal, coronal and oblique axial planes were performed. Using automated exposure control and adjustment o f the mA and/or kV according to patient size, radiation dose was kept as low as reasonably achievable to obtain optimal diagnostic quality images. DICOM format image data is available electronically f or review and comparison. FINDINGS: There is minimal retrolisthesis of C5 O2 to C6 where severe disc space narrowing is present. Alignmen t is otherwise satisfactory. There is no evidence of cervical spine fracture. Dorsal osteophytes at C 5-6 produce a mild degree of bony canal compromise and asymmetrically right-sided foraminal stenosis is present. There is mild multilevel posterior facet arthropathy. There is no evidence of paraspinal hematoma. CONCLUSION: No acute bony injury to cervical spine. Mild bony and asymmetrically right-sided foraminal stenosis a t C5-6 related to severe degenerative spondylosis Donald Briggs MD on January 31, 2018 at 22:10 Board Certified Radiologist. This report was verified electronically.
[2018-01-31] MEDS ORDERED: MACR100C2 PO (22:59)
[2018-01-31] MEDS ORDERED: NITROFURANTOIN MONOHYD MACROCR 100 MG CAP PO ONE (23:00)
== END 2018-02-01 09:45 | disposition home or self-care (01) ==
LOC: PHED 19:50
DX: S00.83XA Contusion of other part of head, initial encounter (principal); W05.0XXA Fall from non-moving wheelchair, initial encounter; N39.0 Urinary tract infection, site not specified; E78.00 Pure hypercholesterolemia, unspecified; I25.10 Atherosclerotic heart disease of native coronary artery without angina pectoris; F32.9 Major depressive disorder, single episode, unspecified; J44.9 Chronic obstructive pulmonary disease, unspecified; I69.351 Hemiplegia and hemiparesis following cerebral infarction affecting right dominant side; I69.320 Aphasia following cerebral infarction; Z86.718 Personal history of other venous thrombosis and embolism
CPT/HCPCS: 70450; 72125; 80048; 81001; 85025; 85610; 85730; 87086; 99284; P9612

== ENCOUNTER 2018-02-01 20:22 | Emergency (ER) | payer MEDICARE ==
[~2018-02-01] VITALS: Ht 160 cm; Wt 87.0 kg
[~2018-02-01 20:22] MED LIST changes: +MACR100C2 PO
[2018-02-01 20:30] VITALS: RESP 20
[2018-02-01 20:41] VITALS: BP 141/95; PULSE 87; RESP 20; TEMP 98.4; O2SAT 95
--- NOTE | 2018-02-01 20:55 | PD ---
HPI Chief Complaint: Fall Time Seen by Provider: 20:34 Travel History International Travel<30 days: No Contact w/Intl Traveler<30days: No Traveled to known affect area: No History of Present Illness HPI 77-year-old female presents to the ED for evaluation of fall. [facility]. Patient is currently under the care of hospice and prison. Patient had a CVA at the cause her to be severely debilitated on the right side. Patient also has a history of seizures as well as chronic pain. She takes multiple medications. She also takes Plavix. Apparently she had a fall today. This fall was not witnessed. Patient cannot really tell is what happened. She does have a significant hematoma to the right side of the face. Patient was seen here actually yesterday for similar. She complains of pain to her left hip as well as to her face. She denies any chest pain or shortness of breath. No abdominal pain. History is limited as patient does appear to be a poor historian. She was brought here in a cervical collar by ambulance. She has a history of MRSA. Unclear if patient had LOC or not. History is obtained mainly from ED nurse as well as report given by ambulance. 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) Endocrine: No Gastrointestinal Disorders: No Genitourinary: No Headaches: No Hepatitis: No Hiatal Hernia: No Hypertension: Yes Immune Disorder: No Musculoskeletal: No Neurologic: Yes (STROKE, APHASIA, RIGHT SIDE PARALYSIS) Psychiatric: No Reproductive: No Respiratory: Yes (COPD) Immunizations Current: Yes Seizures: Yes Thyroid Disease: No Menopausal: Yes Past Surgical History Abdominal Surgery: Yes (APPY) AICD: No Appendectomy: Yes Cholecystectomy: Yes Eye Surgery: No Gynecologic Surgery: Yes (HYSTERECTOMY) Hysterectomy: Yes Joint Replacement: Yes (RIGHT KNEE) Oral Surgery: Yes (T & A) Pacemaker: No Other Surgery: Yes (RIGHT FEMORAL ARTERIGORAM WITH GRAFT PLACEMENT. 01/23/12) Social History Alcohol Use: No Tobacco Use: No (QUIT 20 YEARS AGO) Substance Use: No Allergies-Medications (Allergen,Severity, Reaction): Coded Allergies: *MDRO Multi-Drug Resistant Organism (Verified Adverse Reaction, Unknown, MRSA, 02/01/18) MRSA PCR (nares) POSITIVE - 12/06/16 Reported Meds & Prescriptions Reported Meds & Active Scripts Active Macrobid (Nitrofurantoin Monoh/Nitrofur Macro) 100 Mg Cap 100 Mg PO BID 5 Days Xanax (Alprazolam) 0.5 Mg Tab 0.5 Mg PO Q12HR PRN Pantoprazole (Pantoprazole Sodium) 40 Mg Tab 40 Mg PO DAILY [place] (Hydrocodone-Acetaminophen) 5-325 mg Tab 1 Tab PO Q4H PRN Reported Potassium Chloride ER (Potassium Chloride) 10 Meq Cap 10 Meq PO DAILY Oyster Calcium (Oyster Shell) 500 Mg Calcium (1250 Mg) Tab Xanax (Alprazolam) 1 Mg Tab 1 Mg PO Q12HR PRN Duoneb (Ipratropium-Albuterol Neb) 0.5-2.5 Mg/3 Ml Neb 1 Nebule INH BID Vitamin C62-Pfxwz Acid (Cobalamine Combinations) 500-400 Mcg Tab 1 Tab PO DAILY Ventolin Hfa 18 GM Inh (Albuterol Sulfate) 90 Mcg/Act Aer 2 Puff INH Q4-6H PRN Milk of Magnesia Liq (Magnesium Hydroxide) 400 Mg/5 Ml Susp 30 Ml PO DAILY PRN Budesonide Neb 0.25 Mg/2 Ml Neb 0.25 Mg NEB Q12HR NEB Lorazepam 0.5 Mg Tab 0.5 Mg PO BID PRN Pravastatin 40 Mg Tab 40 Mg PO DAILY Clonidine (Clonidine HCl) 0.1 Mg Tab 0.1 Mg PO BID Furosemide 20 Mg Tab 20 Mg PO DAILY Bisacodyl Supp (Bisacodyl) 10 Mg Supp 10 Mg RECTAL DAILY PRN Ditropan (Oxybutynin Chloride) 5 Mg Tab 2.5 Mg PO Q12HR Gabapentin 100 Mg Cap 200 Mg PO TID Lexapro (Escitalopram Oxalate) 5 Mg Tab 5 Mg PO DAILY Isosorbide Mononitrate ER (Isosorbide Mononitrate) 30 Mg Vinny 30 Mg PO DAILY Brovana Neb (Arformoterol Neb) 15 Mcg/2 Ml Vial 2 Inhaler INH BID Maintenance treatment of bronchoconstriction in COPD. Clopidogrel (Clopidogrel Bisulfate) 75 Mg Tab 75 Mg PO DAILY Ventolin Hfa 18 GM Inh (Albuterol Sulfate) 90 Mcg/Act Aer 2 Puff INH Q6H Levetiracetam 250 Mg Tab 250 Mg PO BID Review of Systems ROS Limitations: Poor Historian Except as stated in HPI: all other systems reviewed are Neg Physical Exam Exam Limitations: Poor Historian Narrative GENERAL: SKIN: Warm and dry. HEAD: Atraumatic. Normocephalic. Patient has significant hematoma to the right upper eyelid. Bruising noted. Tender to touch. Eye itself appears to be intact however. EYES: Pupils equal and round 4 mm reactive to light and accommodation.. No scleral icterus. No injection or drainage. EOM intact bilaterally. ENT: No nasal bleeding or discharge. Mucous membranes pink and moist. Tongue is midline. No blood deviation. NECK: Trachea midline. No JVD. CARDIOVASCULAR: Regular rate and rhythm. RESPIRATORY: No accessory muscle use. Clear to auscultation. Breath sounds equal bilaterally. GASTROINTESTINAL: Abdomen soft, non-tender, nondistended. Hepatic and splenic margins not palpable. MUSCULOSKELETAL: Extremities without clubbing, cyanosis, or edema. No obvious deformities. Full range of motion of the upper and lower extremity on the left side. Patient has weakness to the right side which appears to be chronic. Patient does have slight deformity noted to the shoulder which is unclear if it is new or old. 2+ pulses bilaterally. Patient does appear to have some reversible pain on the left hip but able to move it. No obvious lumbar, thoracic spine tenderness to palpation. Patient was seen with cervical collar in place. NEUROLOGICAL: Awake and alert. No obvious cranial nerve deficits. Motor grossly within normal limits. Five out of 5 muscle strength in the arms and legs. Normal speech. PSYCHIATRIC: Appropriate mood and affect; insight and judgment normal. Data Data Last Documented VS Vital Signs Date Time Temp Pulse Resp B/P (MAP) Pulse Ox O2 Delivery O2 Flow Rate FiO2 02/01/18 22:46 78 16 122/79 (93) 95 Room Air 02/01/18 20:41 98.4 Orders Orders Electrocardiogram (02/01/18 20:35) Complete Blood Count With Diff (02/01/18 20:35) Comprehensive Metabolic Panel (02/01/18 20:35) Ckmb (Isoenzyme) Profile (02/01/18 20:35) Troponin I (02/01/18 20:35) Prothrombin Time / Inr (Pt) (02/01/18 20:35) Act Partial Throm Time (Ptt) (02/01/18 20:35) Lipase (02/01/18 20:35) Urinalysis - C+S If Indicated (02/01/18 20:35) Thyroid Stimulating Hormone (02/01/18 20:35) Chest, Single Ap (02/01/18 20:35) Ct Brain W/O Iv Contrast(Rout) (02/01/18 20:35) Ct Cerv Spine W/O Contrast (02/01/18 20:35) Ct Facial Bones W/O Iv Cont (02/01/18 20:35) Hip, Uni(Ap&Lat) W Ap Pelvis (02/01/18 20:35) Shoulder, Limited(2vws) (02/01/18 20:35) Ice/Cold Pack (02/01/18 20:35) Morphine Inj (Morphine Inj) (02/01/18 21:30) Ondansetron Inj (Zofran Inj) (02/01/18 21:30) Labs Laboratory Tests Test 02/01/18 20:55 White Blood Count 8.3 TH/MM3 Red Blood Count 4.99 MIL/MM3 Hemoglobin 14.8 GM/DL Hematocrit 44.1 % Mean Corpuscular Volume 88.5 FL Mean Corpuscular Hemoglobin 29.8 PG Mean Corpuscular Hemoglobin Concent 33.6 % Red Cell Distribution Width 14.7 % Platelet Count 199 TH/MM3 Mean Platelet Volume 9.1 FL Neutrophils (%) (Auto) 78.0 % Lymphocytes (%) (Auto) 13.3 % Monocytes (%) (Auto) 6.7 % Eosinophils (%) (Auto) 1.5 % Basophils (%) (Auto) 0.5 % Neutrophils # (Auto) 6.5 TH/MM3 Lymphocytes # (Auto) 1.1 TH/MM3 Monocytes # (Auto) 0.6 TH/MM3 Eosinophils # (Auto) 0.1 TH/MM3 Basophils # (Auto) 0.0 TH/MM3 CBC Comment DIFF FINAL Differential Comment Prothrombin Time 10.7 SEC Prothromb Time International Ratio 1.1 RATIO Activated Partial Thromboplast Time 25.9 SEC Blood Urea Nitrogen 21 MG/DL Creatinine 1.33 MG/DL Random Glucose 127 MG/DL Total Protein 8.0 GM/DL Albumin 4.0 GM/DL Calcium Level 9.1 MG/DL Alkaline Phosphatase 68 U/L Aspartate Amino Transf (AST/SGOT) 25 U/L Alanine Aminotransferase (ALT/SGPT) 17 U/L Total Bilirubin 0.4 MG/DL Sodium Level 141 MEQ/L Potassium Level 3.2 MEQ/L Chloride Level 103 MEQ/L Carbon Dioxide Level 28.9 MEQ/L Anion Gap 9 MEQ/L Estimat Glomerular Filtration Rate 39 ML/MIN Total Creatine Kinase 75 U/L Troponin I LESS THAN 0.02 NG/ML Lipase 77 U/L Thyroid Stimulating Hormone 3rd Gen 5.490 uIU/ML MDM Medical Decision Making Medical Screen Exam Complete: Yes Emergency Medical Condition: Yes Medical Record Reviewed: Yes Differential Diagnosis Fall versus head injury versus syncope versus CVA versus fracture versus ICH Narrative Course 77-year-old female that presents to the ED for evaluation of fall. Patient was properly examined and was found to have signs and symptoms consistent with fall versus syncope versus both. Labs and imaging ordered. Case signed out to my attending pending disposition and plan. Adams Ferreira Feb 01, 2018 20:55
[2018-02-01 21:19] LABS: AUTOMATED NEUTROPHIL # 6.5 TH/MM3 (1.8-7.7); BASOPHIL % 0.5 % (0.0-2.0); EOSINOPHIL # 0.1 TH/MM3 (0-0.4); EOSINOPHIL % 1.5 % (0.0-4.0); HEMATOCRIT 44.1 % (35.0-46.0); HEMOGLOBIN 14.8 GM/DL (11.6-15.3); LYMPH % 13.3 % (9.0-44.0); LYMPHOCYTE # 1.1 TH/MM3 (1.0-4.8); MEAN CELL VOLUME 88.5 FL (80.0-100.0); MEAN CORPUSCULAR HEMOGLOBIN 29.8 PG (27.0-34.0); MEAN CORPUSCULAR HGB CONC 33.6 % (32.0-36.0); MEAN PLATELET VOLUME 9.1 FL (7.0-11.0); MONO % 6.7 % (0.0-8.0); MONOCYTE # 0.6 TH/MM3 (0-0.9); PLATELET COUNT 199 TH/MM3 (150-450); RED BLOOD COUNT 4.99 MIL/MM3 (4.00-5.30); RED CELL DISTRIBUTION WIDTH 14.7 % (11.6-17.2); WHITE BLOOD COUNT 8.3 TH/MM3 (4.0-11.0)
[2018-02-01 21:24] LABS: INTERNATIONAL NORMALIZED RATIO 1.1 RATIO; PROTHROMBIN TIME - PATIENT 10.7 SEC (9.8-11.6)
[2018-02-01 21:26] LABS: AST (GOT) 25 U/L (15-37); BICARBONATE 28.9 MEQ/L (21.0-32.0); BLOOD UREA NITROGEN 21 MG/DL (7-18); CALCIUM 9.1 MG/DL (8.5-10.1); CHLORIDE 103 MEQ/L (98-107); CREATININE 1.33 MG/DL (0.50-1.00); GLOMERULAR FILTRATION RATE 39 ML/MIN (>89); GLUCOSE,RANDOM 127 MG/DL (74-106); SODIUM (NA) 141 MEQ/L (136-145)
[2018-02-01 21:28] LABS: ALT (GPT) 17 U/L (10-53)
[2018-02-01] MEDS ORDERED: ONDANSETRON HCL 4 MG/2 ML VIAL IV PUSH ONE (21:30)
[2018-02-01] MEDS ORDERED: MORPHINE SULFATE 2 MG/ML SYRINGE IV PUSH ONE (21:30)
[2018-02-01 21:37] LABS: ALKALINE PHOSPHATASE 68 U/L (45-117); TOTAL BILIRUBIN ADULT 0.4 MG/DL (0.2-1.0); TROPONIN I LESS THAN 0.02 NG/ML (0.02-0.05)
[2018-02-01 21:44] VITALS: BP 128/85; PULSE 87; RESP 16; O2SAT 94
--- NOTE | 2018-02-01 22:08 | RADRPT ---
EXAM DATE/TIME: 02/01/2018 21:01 [facility] COMPARISON: CT BRAIN W/O CONTRAST, January 31, 2018, 21:38. INDICATIONS : TRauma, patient fell, hitting head. RADIATION DOSE: 33.13 CTDIvol (mGy) MEDICAL HISTORY : Cerebrovascular disease. Cardiovascular disease Seizures.hypertension SURGICAL HISTORY : Appendectomy. Cholecystectomy.Hysterectomy. ENCOUNTER: Initial ACUITY: 1 day PAIN SCALE: 6/10 LOCATION: cranial TECHNIQUE: Multiple contiguous axial images were obtained of the head. Using automated exposure control and adj ustment of the mA and/or kV according to patient size, radiation dose was kept as low as reasonably a chievable to obtain optimal diagnostic quality images. DICOM format image data is available electro nically for review and comparison. FINDINGS: CEREBRUM: There is a new extra-axial hemorrhage measuring up to 0.7 cm seen over the right frontal region. This either represents a subdural or epidural hemorrhage. This extends over an approximate 2.5 cm length. Mass effect is not seen. There is increased density in the interhemispheric fissure region likely re lated to subarachnoid hemorrhage. There may be some mild subarachnoid hemorrhage in the anterior left frontal lobe. There is questionable minimal subarachnoid hemorrhage in the left occipital region. Th ere is a large evidence of encephalomalacia involving much of the left middle cerebral artery territo ry. The ventricles are distended. The basal cisterns are open. POSTERIOR FOSSA: There is increased density seen at the anterior left cerebellum which could be related to mild local parenchymal hemorrhage. Some beam hardening artifact may be contributing to this appearance. Otherwis e the cerebellum and brainstem are intact. The 4th ventricle is midline. The cerebellopontine angle is unremarkable. EXTRACRANIAL: There is a new right frontal scalp hematoma measuring at up to 6.2 cm in transverse dimension and 2.3 cm in AP dimension. The visualized portion of the orbits is intact. SKULL: The calvaria is intact. No evidence of skull fracture. CONCLUSION: 1. New focal extra-axial hemorrhage seen at the right frontal region representing either a mild subdu ral or epidural hemorrhage without significant mass effect at this time. This measures up to 7 mm in thickness. 2. Suspected subarachnoid hemorrhage in the interhemispheric fissure and potentially in the left fron latrice lobe. 3. Mild hemorrhage seen in the left anterior cerebellum. 4. Large area of encephalomalacia involving the left middle cerebral artery territory. Donald Ortiz MD on February 01, 2018 at 21:56 Board Certified Radiologist. This report was verified electronically.
--- NOTE | 2018-02-01 22:26 | RADRPT ---
EXAM DATE/TIME: 02/01/2018 21:01 [facility] COMPARISON: CT CERVICAL SPINE W/O CONTRAST, January 31, 2018, 21:38. INDICATIONS : Trauma, patient fell, hitting head. RADIATION DOSE: 22.83 CTDIvol (mGy) MEDICAL HISTORY : Cerebrovascular disease. Cardiovascular disease Seizures.hypertension SURGICAL HISTORY : Appendectomy. Cholecystectomy.Hysterectomy. ENCOUNTER: Initial ACUITY: 1 day PAIN SCALE: 6/10 LOCATION: neck TECHNIQUE: Volumetric scanning of the cervical spine was performed. Multiplanar reconstructions in the sagittal, coronal and oblique axial planes were performed. Using automated exposure control and adjustment o f the mA and/or kV according to patient size, radiation dose was kept as low as reasonably achievable to obtain optimal diagnostic quality images. DICOM format image data is available electronically f or review and comparison. FINDINGS: VERTEBRAE: Normal vertebral body height. ALIGNMENT: There is mild anterior subluxation of C3 on C4, C4 on C5, and C7 on T1 and posterior subluxation of C 5 on C6. C2-C3: The bony spinal canal is normal in size. No evidence of disc bulge or herniation. The neural forami na are bilaterally patent. There is mild facet hypertrophy. C3-C4: Again noted is the mild anterior subluxation. The bony spinal canal is normal in size. No evidence o f disc bulge or herniation. There is left neural foraminal narrowing. The right neural foramina is pa tent. There is moderate facet hypertrophy. C4-C5: There is mild diffuse disc bulge. The bony spinal canal is normal in size. No evidence of disc bulge or herniation. The neural foramina are bilaterally patent. There is moderate facet hypertrophy. C5-C6: The disc demonstrates decreased height. There is severe posterior osteophytic ridging. There is uncov ertebral hypertrophy being worse on the right. There is facet hypertrophy being worse on the right. T here is narrowing of the right neural foramina. The left neural foramen is grossly patent. C6-C7: The disc demonstrates decreased height. There is minimal osteophytic ridging. There is uncovertebral hypertrophy being worse on the left. There is narrowing of the left neural foramina. The right neural foramina is patent. There is mild facet hypertrophy being worse on the right. C7-T1: The bony spinal canal is normal in size. No evidence of disc bulge or herniation. The neural forami na are bilaterally patent. CONCLUSION: 1. No acute bony abnormality is seen. 2. Degenerative change seen throughout being worse at the C5-C6 level. Donald Ortiz MD on February 01, 2018 at 22:17 Board Certified Radiologist. This report was verified electronically.
--- NOTE | 2018-02-01 22:28 | RADRPT ---
EXAM DATE/TIME: 02/01/2018 21:01 [facility] COMPARISON: No previous studies available for comparison. INDICATIONS : Trauma, patient fell, hitting head. Patient has swollen right eye. RADIATION DOSE: 59.88 CTDIvol (mGy) MEDICAL HISTORY : Cardiovascular disease. Cerebrovascular disease. Seizures.hypertension SURGICAL HISTORY : Appendectomy. Cholecystectomy.Hysterectomy. ENCOUNTER: Initial ACUITY: 1 day PAIN SCORE: 6/10 LOCATION: facial TECHNIQUE: Volumetric scanning of the facial bones was performed. Using automated exposure control and adjustme nt of the mA and/or kV according to patient size, radiation dose was kept as low as reasonably achiev able to obtain optimal diagnostic quality images. DICOM format image data is available electronicall y for review and comparison. FINDINGS: ORBITS: The orbital and infraorbital osseous structures are intact. The retroconal structures have a normal configuration. No radiopaque foreign bodies are seen. NASAL BONE: The nasal bone and maxillary spine are intact ZYGOMATIC ARCHES: Symmetric without evidence of fracture. SINUSES: The maxillary, ethmoid and frontal sinuses are intact. No air-fluid levels seen. NASAL CAVITY: The nasal septum is intact and midline. The lacrimal ducts are intact. SOFT TISSUES: There is a large right frontal/periorbital area soft tissue swelling and hemorrhage. No radiopaque fo reign bodies seen. INTRACRANIAL: No intracranial air seen. CRIBIFORM PLATE: Grossly intact. CONCLUSION: Right frontal scalp and periorbital soft tissue swelling and hemorrhage. No fracture is seen. Donald Ortiz MD on February 01, 2018 at 22:24 Board Certified Radiologist. This report was verified electronically.
--- NOTE | 2018-02-01 22:32 | RADRPT ---
EXAM DATE/TIME: 02/01/2018 21:12 [facility] COMPARISON: No previous studies available for comparison. INDICATIONS : Pain. MEDICAL HISTORY : Cerebrovascular disease. Deep venous thrombosis. Chronic obstructive pulmonary disease.Hypertension SURGICAL HISTORY : Appendectomy. Hysterectomy ENCOUNTER: Initial ACUITY: 1 day PAIN SCORE: Non-responsive. LOCATION: Left Hip. FINDINGS: Examination of the left hip was performed with AP Pelvis. The primary and secondary trabecular patte rn of the femoral neck is intact. The hip joint is of normal width without significant sclerosis or bony hypertrophy. The acetabulum is grossly intact. Clips are seen in the left inguinal region. Vascular stents are seen in the external iliac region. CONCLUSION: No fracture is seen. Donald Ortiz MD on February 01, 2018 at 22:29 Board Certified Radiologist. This report was verified electronically.
--- NOTE | 2018-02-01 22:37 | RADRPT ---
EXAM DATE/TIME: 02/01/2018 21:19 [facility] COMPARISON: CHEST SINGLE AP, December 06, 2016, 2:20. INDICATIONS : Trauma. MEDICAL HISTORY : Cerebrovascular disease. Deep venous thrombosis. Chronic obstructive pulmonary disease.Hypertension. SURGICAL HISTORY : Appendectomy. Hysterectomy. ENCOUNTER: Initial ACUITY: 1 day PAIN SCORE: Non-responsive. LOCATION: Right Shoulder. FINDINGS: Two view examination of the right shoulder demonstrates no evidence of acute fracture or dislocation. There is a deformity from prior proximal humeral shaft fracture. The glenohumeral and acromioclavic ular joints are maintained. The bones appear osteopenic. CONCLUSION: No acute disease. Donald Ortiz MD on February 01, 2018 at 22:34 Board Certified Radiologist. This report was verified electronically.
--- NOTE | 2018-02-01 22:38 | RADRPT ---
EXAM DATE/TIME: 02/01/2018 21:28 [facility] COMPARISON: CHEST SINGLE AP, December 06, 2016, 2:20. INDICATIONS : Trauma. MEDICAL HISTORY : Cerebrovascular disease. Deep venous thrombosis. Chronic obstructive pulmonary disease.Hypertension. SURGICAL HISTORY : Appendectomy. Hysterectomy. ENCOUNTER: Initial ACUITY: 1 day PAIN SCORE: Non-responsive. LOCATION: Bilateral chest FINDINGS: The heart size is enlarged. The aorta is calcified. The lungs are grossly clear. No effusion is seen. There is a chronic deformity from prior fracture at the proximal right numeral shaft. CONCLUSION: 1. Cardiomegaly. 2. No definite acute abnormality seen. Donald Ortiz MD on February 01, 2018 at 22:35 Board Certified Radiologist. This report was verified electronically.
[2018-02-01 22:46] VITALS: BP 122/79; PULSE 78; RESP 16; O2SAT 95
[2018-02-01 23:29] LABS: BACTERIA, URINE RARE /hpf; BILIRUBIN, URINE NEG (NEG); BLOOD, URINE NEG (NEG); GLUCOSE,URINE NEG (NEG); KETONE, URINE NEG (NEG); NITRITE,URINE NEG (NEG); PH, URINE 7.5 (5.0-8.5); URINE COLOR LIGHT-YELLOW (YELLW/STRAW); URINE LEUKOCYTE ESTERASE NEG (NEG)
--- NOTE | 2018-02-01 23:57 | PD.CONS ---
[facility] Service Critical Care Medicine Consult Requested By Dr. Hernandez in the emergency department Reason for Consult Evaluation of intracerebral hemorrhage Primary Care Physician Patricia Causey MD History of Present Illness This is a 77-year-old female with a history of prior stroke who is currently in active hospice care in a nursing home facility who presented on both 01/31 and 02/01 for recurrent falls. On 01/31 she had a negative head CT and was discharged with a prescription to treat a presumed urinary tract infection with a positive urinalysis. She represents today with new hematoma over the right eye after another fall. CT scan of the head shows multiple small intraparenchymal's and possible subdural/epidural hematoma. Dr. Hernandez consulted me and asked me to evaluate the patient. I came and evaluated the patient and talked to the patient, who does not want aggressive care, and would prefer to be back at her nursing home facility. I have also spoken with Dr. Nielsen, our on-call neurosurgeon, who agrees that conservative management and holding Plavix is the only option available to her, and also agrees that given her active hospice care, she would be appropriate to return to her nursing home facility. I discussed her medical condition at length with her next of kin and medical decision maker Lata Jaffe who [place], but who agrees that the patient remains a DNR, remains in hospice care, and would not want aggressive therapy. The medical decision maker does state that she thinks everyone would feel more comfortable if we observe the patient overnight before sending her back to her nursing home facility, simply to make sure that the patient gets all of her needs met overnight. I think this is reasonable, and we will monitor the patient overnight with a plan to return her to her nursing home facility in the morning. I have conveyed these findings to Dr. Hernandez, who agrees. We will not admit the patient in inpatient setting at this time. We will hold the patient the emergency department and observe her overnight. We will keep her DNR status intact. We will not plan on being aggressive nor any surgical intervention, but treat the patient's symptoms of pain or distress. 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 seizure disorder history of DVT history of coronary artery disease Past Surgical History appendectomy cholecystectomy cataract surgery hysterectomy right femoral graft placement Reported Medications Macrobid (Nitrofurantoin Monoh/Nitrofur Macro) 100 Mg Cap 100 Mg PO BID 5 Days Xanax (Alprazolam) 0.5 Mg Tab 0.5 Mg PO Q12HR PRN Pantoprazole (Pantoprazole Sodium) 40 Mg Tab 40 Mg PO DAILY [place] (Hydrocodone-Acetaminophen) 5-325 mg Tab 1 Tab PO Q4H PRN Potassium Chloride ER (Potassium Chloride) 10 Meq Cap 10 Meq PO DAILY Oyster Calcium (Oyster Shell) 500 Mg Calcium (1250 Mg) Tab Xanax (Alprazolam) 1 Mg Tab 1 Mg PO Q12HR PRN Duoneb (Ipratropium-Albuterol Neb) 0.5-2.5 Mg/3 Ml Neb 1 Nebule INH BID Vitamin V73-Qhgsh Acid (Cobalamine Combinations) 500-400 Mcg Tab 1 Tab PO DAILY Ventolin Hfa 18 GM Inh (Albuterol Sulfate) 90 Mcg/Act Aer 2 Puff INH Q4-6H PRN Milk of Magnesia Liq (Magnesium Hydroxide) 400 Mg/5 Ml Susp 30 Ml PO DAILY PRN Budesonide Neb 0.25 Mg/2 Ml Neb 0.25 Mg NEB Q12HR NEB Lorazepam 0.5 Mg Tab 0.5 Mg PO BID PRN Pravastatin 40 Mg Tab 40 Mg PO DAILY Clonidine (Clonidine HCl) 0.1 Mg Tab 0.1 Mg PO BID Furosemide 20 Mg Tab 20 Mg PO DAILY Bisacodyl Supp (Bisacodyl) 10 Mg Supp 10 Mg RECTAL DAILY PRN Ditropan (Oxybutynin Chloride) 5 Mg Tab 2.5 Mg PO Q12HR Gabapentin 100 Mg Cap 200 Mg PO TID Lexapro (Escitalopram Oxalate) 5 Mg Tab 5 Mg PO DAILY Isosorbide Mononitrate ER (Isosorbide Mononitrate) 30 Mg Vinny 30 Mg PO DAILY Brovana Neb (Arformoterol Neb) 15 Mcg/2 Ml Vial 2 Inhaler INH BID Maintenance treatment of bronchoconstriction in COPD. Clopidogrel (Clopidogrel Bisulfate) 75 Mg Tab 75 Mg PO DAILY Ventolin Hfa 18 GM Inh (Albuterol Sulfate) 90 Mcg/Act Aer 2 Puff INH Q6H Levetiracetam 250 Mg Tab 250 Mg PO BID Active Ordered Medications See MAR Family History reviewed and found to be noncontributory to her acute illness Social History former smoker > 20 years ago, denies etoh. Physical Exam Vital Signs Vital Signs Date Time Temp Pulse Resp B/P (MAP) Pulse Ox O2 Delivery O2 Flow Rate FiO2 02/01/18 22:46 78 16 122/79 (93) 95 Room Air 02/01/18 21:44 87 16 128/85 (99) 94 Room Air 02/01/18 20:41 98.4 87 20 141/95 (110) 95 Room Air 02/01/18 20:30 20 Physical Exam GENERAL: Frail elderly female, lying in bed, no acute distress HEENT: Large hematoma with ecchymoses over the right eye. Pupils equal, round, reactive, conjugate. Mucous membranes are moist NECK: Trachea is midline. There is no JVD. CHEST: Unlabored. Room air. CARDIOVASCULAR: Normal rate, regular rhythm. Sinus. ABDOMEN: Soft, nontender, nondistended. No guarding. MUSCULOSKELETAL: Pulses 2+. No peripheral edema. NEUROLOGICAL: At neurologic baseline for the patient. Normal speech. RASS 0. Laboratory Laboratory Tests Test 02/01/18 20:55 02/01/18 23:00 White Blood Count 8.3 Red Blood Count 4.99 Hemoglobin 14.8 Hematocrit 44.1 Mean Corpuscular Volume 88.5 Mean Corpuscular Hemoglobin 29.8 Mean Corpuscular Hemoglobin Concent 33.6 Red Cell Distribution Width 14.7 Platelet Count 199 Mean Platelet Volume 9.1 Neutrophils (%) (Auto) 78.0 Lymphocytes (%) (Auto) 13.3 Monocytes (%) (Auto) 6.7 Eosinophils (%) (Auto) 1.5 Basophils (%) (Auto) 0.5 Neutrophils # (Auto) 6.5 Lymphocytes # (Auto) 1.1 Monocytes # (Auto) 0.6 Eosinophils # (Auto) 0.1 Basophils # (Auto) 0.0 CBC Comment DIFF FINAL Differential Comment Prothrombin Time 10.7 Prothromb Time International Ratio 1.1 Activated Partial Thromboplast Time 25.9 Blood Urea Nitrogen 21 Creatinine 1.33 Random Glucose 127 Total Protein 8.0 Albumin 4.0 Calcium Level 9.1 Alkaline Phosphatase 68 Aspartate Amino Transf (AST/SGOT) 25 Alanine Aminotransferase (ALT/SGPT) 17 Total Bilirubin 0.4 Sodium Level 141 Potassium Level 3.2 Chloride Level 103 Carbon Dioxide Level 28.9 Anion Gap 9 Estimat Glomerular Filtration Rate 39 Total Creatine Kinase 75 Troponin I LESS THAN 0.02 Lipase 77 Thyroid Stimulating Hormone 3rd Gen 5.490 Urine Color LIGHT-YELLOW Urine Turbidity CLEAR Urine pH 7.5 Urine Specific [place] 1.009 Urine Protein 100 Urine Glucose (UA) NEG Urine Ketones NEG Urine Occult Blood NEG Urine Nitrite NEG Urine Bilirubin NEG Urine Urobilinogen LESS THAN 2.0 Urine Leukocyte Esterase NEG Urine WBC 1 Urine Bacteria RARE Microscopic Urinalysis Comment CULT NOT INDICATED Result Diagram: 02/01/18205402/01/182054 Imaging Last Impressions Shoulder X-Ray 02/01/182034 Signed Impressions: Service Date/Time: Thursday, February 01, 2018 21:19 - CONCLUSION: No acute disease. Donald Ortiz MD Maxillofacial CT 02/01/182034 Signed Impressions: Service Date/Time: Thursday, February 01, 2018 21:01 - CONCLUSION: Right frontal scalp and periorbital soft tissue swelling and hemorrhage. No fracture is seen. Donald Ortiz MD Hip and Pelvis X-Ray 02/01/182034 Signed Impressions: Service Date/Time: Thursday, February 01, 2018 21:12 - CONCLUSION: No fracture is seen. Donald Ortiz MD Head CT 02/01/182034 Signed Impressions: Service Date/Time: Thursday, February 01, 2018 21:01 - CONCLUSION: 1. New focal extra-axial hemorrhage seen at the right frontal region representing either a mild subdural or epidural hemorrhage without significant mass effect at this time. This measures up to 7 mm in thickness. 2. Suspected subarachnoid hemorrhage in the interhemispheric fissure and potentially in the left frontal lobe. 3. Mild hemorrhage seen in the left anterior cerebellum. 4. Large area of encephalomalacia involving the left middle cerebral artery territory. Donald Ortiz MD Chest X-Ray 02/01/182034 Signed Impressions: Service Date/Time: Thursday, February 01, 2018 21:28 - CONCLUSION: 1. Cardiomegaly. 2. No definite acute abnormality seen. Donald Ortiz MD Cervical Spine CT 02/01/182034 Signed Impressions: Service Date/Time: Thursday, February 01, 2018 21:01 - CONCLUSION: 1. No acute bony abnormality is seen. 2. Degenerative change seen throughout being worse at the C5-C6 level. Donald Ortiz MD Assessment and Plan Assessment and Plan Assessment: 77-year-old female active hospice patient who has recurrent falls and now has intracerebral hemorrhages. Will treat her pain. Will observe her in the emergency department overnight. Will not plan to admit the patient. Active problems: Traumatic intracerebral hemorrhage Plan: Hold Plavix Adequate pain control May eat and drink as tolerated Return to nursing home facility in the morning Continue DNR status Continue hospice care. Critical care medicine will sign off. We will not admit the patient to the inpatient setting. Contact us to reconsult with any further questions. Savage Groves MD Feb 01, 2018 23:57
[2018-02-02 01:42] VITALS: BP 107/76; PULSE 79; RESP 16; O2SAT 94
[2018-02-02 04:26] VITALS: BP 103/65; PULSE 85; RESP 16; O2SAT 94
[2018-02-02 06:40] VITALS: BP 99/66; PULSE 82; RESP 16; O2SAT 95
--- NOTE | 2018-02-02 06:51 | PD ---
Physical Exam Date Seen by Provider: Feb 01, 2018 Time Seen by Provider: 23:00 Narrative Patient's case discussed with me from the [facility]. We discussed the case with the ICU attending Dr. Chapin who calls the hospice program and Dr. Chapin also got in touch with healthcare proxy of the patient. Patient has a subdural and both are small with no mass-effect. It is a traumatic bleed.. However the patient is a DNR . I had spoke to the Dr. Gamez of the neurosurgeon and he feels that there was nothing to do interventionally at this time but he will follow the patient if admitted. Dr. Chapin speaks with healthcare proxy and the hospitalist and this attending we decided that therefore the patient should be [facility] stay on the hospice and not be admitted where she would lose the hospice program that is in place for her she is in the ER overnight we observe her there is no change in her mental status and healthcare proxy with the plaster mixer and I agree she should return to the assisted to continue her hospice plan. Discharge home Data Data Last Documented VS Vital Signs Date Time Temp Pulse Resp B/P (MAP) Pulse Ox O2 Delivery O2 Flow Rate FiO2 02/02/18 07:00 02/02/18 06:40 82 16 95 Room Air 02/01/18 20:41 98.4 Orders Orders Electrocardiogram (02/01/18 20:35) Complete Blood Count With Diff (02/01/18 20:35) Comprehensive Metabolic Panel (02/01/18 20:35) Ckmb (Isoenzyme) Profile (02/01/18 20:35) Troponin I (02/01/18 20:35) Prothrombin Time / Inr (Pt) (02/01/18 20:35) Act Partial Throm Time (Ptt) (02/01/18 20:35) Lipase (02/01/18 20:35) Urinalysis - C+S If Indicated (02/01/18 20:35) Thyroid Stimulating Hormone (02/01/18 20:35) Chest, Single Ap (02/01/18 20:35) Ct Brain W/O Iv Contrast(Rout) (02/01/18 20:35) Ct Cerv Spine W/O Contrast (02/01/18 20:35) Ct Facial Bones W/O Iv Cont (02/01/18 20:35) Hip, Uni(Ap&Lat) W Ap Pelvis (02/01/18 20:35) Shoulder, Limited(2vws) (02/01/18 20:35) Ice/Cold Pack (02/01/18 20:35) Morphine Inj (Morphine Inj) (02/01/18 21:30) Ondansetron Inj (Zofran Inj) (02/01/18 21:30) Ed Discharge Order (02/02/18 06:46) Labs Laboratory Tests Test 02/01/18 20:55 02/01/18 23:00 White Blood Count 8.3 TH/MM3 Red Blood Count 4.99 MIL/MM3 Hemoglobin 14.8 GM/DL Hematocrit 44.1 % Mean Corpuscular Volume 88.5 FL Mean Corpuscular Hemoglobin 29.8 PG Mean Corpuscular Hemoglobin Concent 33.6 % Red Cell Distribution Width 14.7 % Platelet Count 199 TH/MM3 Mean Platelet Volume 9.1 FL Neutrophils (%) (Auto) 78.0 % Lymphocytes (%) (Auto) 13.3 % Monocytes (%) (Auto) 6.7 % Eosinophils (%) (Auto) 1.5 % Basophils (%) (Auto) 0.5 % Neutrophils # (Auto) 6.5 TH/MM3 Lymphocytes # (Auto) 1.1 TH/MM3 Monocytes # (Auto) 0.6 TH/MM3 Eosinophils # (Auto) 0.1 TH/MM3 Basophils # (Auto) 0.0 TH/MM3 CBC Comment DIFF FINAL Differential Comment Prothrombin Time 10.7 SEC Prothromb Time International Ratio 1.1 RATIO Activated Partial Thromboplast Time 25.9 SEC Blood Urea Nitrogen 21 MG/DL Creatinine 1.33 MG/DL Random Glucose 127 MG/DL Total Protein 8.0 GM/DL Albumin 4.0 GM/DL Calcium Level 9.1 MG/DL Alkaline Phosphatase 68 U/L Aspartate Amino Transf (AST/SGOT) 25 U/L Alanine Aminotransferase (ALT/SGPT) 17 U/L Total Bilirubin 0.4 MG/DL Sodium Level 141 MEQ/L Potassium Level 3.2 MEQ/L Chloride Level 103 MEQ/L Carbon Dioxide Level 28.9 MEQ/L Anion Gap 9 MEQ/L Estimat Glomerular Filtration Rate 39 ML/MIN Total Creatine Kinase 75 U/L Troponin I LESS THAN 0.02 NG/ML Lipase 77 U/L Thyroid Stimulating Hormone 3rd Gen 5.490 uIU/ML Urine Color LIGHT-YELLOW Urine Turbidity CLEAR Urine pH 7.5 Urine Specific [place] 1.009 Urine Protein 100 mg/dL Urine Glucose (UA) NEG mg/dL Urine Ketones NEG mg/dL Urine Occult Blood NEG Urine Nitrite NEG Urine Bilirubin NEG Urine Urobilinogen LESS THAN 2.0 MG/DL Urine Leukocyte Esterase NEG Urine WBC 1 /hpf Urine Bacteria RARE /hpf Microscopic Urinalysis Comment CULT NOT INDICATED MDM Supervised Visit with MOODY: No Differential Diagnosis hematoma to scalp vs intracranial bleed vs subdural vs subarachnoid vs epidural, seen by PA and Dr Groves ICU consulted and He talks at length to pts health care proxy , they decide that no intervention indicated no surgery for bleed and pt is already on hospice, They don't want admission for observation because an admission to hospital would remove her from hospice and family does not want that . pt kept in ER overnight until transport in AM back to SNF Narrative Course Intracranial bleed traumatic patient [facility] be [facility] as she is on hospice and there is no intervention at this time healthcare proxy and Dr. Chapin have a conversation and it is agreed that patient return to skilled facility in the a.m. Diagnosis Primary Impression: Traumatic intracranial hemorrhage Additional Impression: Traumatic hematoma of forehead Disposition: 03 DISCHARGE TO SNF Condition: Stable Garry Hernandez MD Feb 02, 2018 06:51
--- NOTE | 2018-02-02 18:15 | EKG ---
Date Performed: 02/01/2018 Time Performed: 20:36:28 PTAGE: 77 years EKG: Sinus rhythm WITH OCCASIONAL VENTRICULAR PREMATURE COMPLEXES SLIGHT NONSPECIFIC ST-T ABNORMALITY Compared to prev ious tracing, PVCs are new. ST-T abnormalities are similar ABNORMAL ECG PREVIOUS TRACING : 12/06/2016 01.08 DOCTOR: Elias Varghese Interpretating Date/Time 02/02/2018 18:14:42
== END 2018-02-02 08:40 ==
LOC: NEPE 20:22
DX: S06.309A Unspecified focal traumatic brain injury with loss of consciousness of unspecified duration, initial encounter (principal); S00.11XA Contusion of right eyelid and periocular area, initial encounter; M25.552 Pain in left hip; E78.00 Pure hypercholesterolemia, unspecified; I10 Essential (primary) hypertension; I25.10 Atherosclerotic heart disease of native coronary artery without angina pectoris; J44.9 Chronic obstructive pulmonary disease, unspecified; G40.909 Epilepsy, unspecified, not intractable, without status epilepticus; R29.6 Repeated falls; R94.31 Abnormal electrocardiogram [ECG] [EKG]; W19.XXXA Unspecified fall, initial encounter; Y92.129 Unspecified place in nursing home as the place of occurrence of the external cause; Z79.02 Long term (current) use of antithrombotics/antiplatelets; Z79.899 Other long term (current) drug therapy; Z66 Do not resuscitate; Z87.891 Personal history of nicotine dependence
CPT/HCPCS: 70450; 70486; 71045; 72125; 73030; 73502; 80053; 81001; 82550; 83690; 84443; 84484; 85025; 85610; 85730; 93005; 99285